=== PATIENT | male | born 1965 | race Caucasian/White ===

== ENCOUNTER → 2021-12-16 | Outpatient (CLI) | payer MEDICAID, SELFPAY ==
[2021-12-16 12:03] LABS: Absolute Lymphocyte Count 2.03 X10^3/uL (0.83-4.51); Basophil# 0.03 X10^3/uL; Basophil% 0.4 % (0-1); Eosinophil# 0.17 X10^3/uL; Eosinophils% 2.5 % (0-5); Hemoglobin 17.4 g/dL (13.0-16.5); Lymphocyte # 2.03 X10^3/ul (0.83-4.51); Lymphocyte % 30.4 % (19-41); Mean Corp Hgb Conc 35.5 g/dL (32-36); Mean Corpuscular Hgb 30.7 pg (27.0-32.0); Mean Corpuscular Volume 86.6 fL (80-94); Mean Platelet Vol. 10.7 fl (6.2-12.0); Monocyte# 0.46 X10^3/uL; Monocyte% 6.9 % (0-10); NRBC Flagged by Analyzer 0 % (0-5); Neutrophil # 3.95 X10^3/uL (2.7-7.7); Neutrophil % 59.4 % (47-70); Platelet Count 155 K/mm3 (150-450); RBC Distribution Width CV 12.5 % (11.6-14.6); RBC Distribution Width SD 39.1 fl (35.1-43.9); Red Blood Count 5.66 M/mm3 (4.6-6.2); White Blood Count 6.7 K/mm3 (4.4-11.0)
[2021-12-16 12:58] LABS: Hemoglobin A1c 9.6 % (3.8-5.6)
[2021-12-16 13:40] LABS: AST(SGOT) 20 U/L (15-37); Alanine Aminotransfer ALT/SGPT 36 U/L (16-61); Albumin, Serum 3.9 g/dL (3.2-5.0); Alkaline Phosphatase 57 U/L (45-117); Anion Gap 9 (5-15); BUN 20 mg/dL (7-18); BUN/Creat Ratio 20.2 RATIO (10-20); Calcium,Total 8.5 mg/dL (8.5-10.1); Chloride 102 mmol/L (98-107); Cholesterol 245 mg/dL (200); Creatinine, Serum 0.99 mg/dL (0.70-1.30); EST Glomerular Filtration Rate 83 mL/min (>60); Est Glom Filt Rate - Afr Amer 101 mL/min (>60); Globulin 3.9 g/dL (2.2-4.2); Glucose 219 mg/dL (74-106); High Density Lipoprotein 18 mg/dL; Potassium 4.5 mmol/L (3.5-5.1); Protein, Total 7.8 g/dL (6.4-8.2); Sodium Level 133 mmol/L (136-145); Triglycerides 1661 mg/dL
[2021-12-17 16:25] LABS: PSA, Total 0.6 ng/mL (0.0-4.0)
== END | disposition home or self-care (01) ==
LOC: MFPLAB 11:17
PROVIDERS: PCP Family Medicine; Referring Provider Family Medicine; Visit Provider Family Medicine
DX: I10 Essential (primary) hypertension (principal); E11.9 Type 2 diabetes mellitus without complications; Z12.5 Encounter for screening for malignant neoplasm of prostate
CPT/HCPCS: 36415; 80053; 80061; 83036; 84153; 85025

== ENCOUNTER → 2022-03-22 | Outpatient (CLI) | payer MEDICAID, SELFPAY ==
[2022-03-22 12:53] LABS: ALB/GLOB Ratio 1.1 RATIO (0.9-2.4); AST(SGOT) 11 U/L (15-37); Alanine Aminotransfer ALT/SGPT 33 U/L (16-61); Albumin, Serum 3.9 g/dL (3.2-5.0); Alkaline Phosphatase 64 U/L (45-117); Anion Gap 10 (5-15); BUN 20 mg/dL (7-18); BUN/Creat Ratio 18.5 RATIO (10-20); Calcium,Total 9.1 mg/dL (8.5-10.1); Chloride 104 mmol/L (98-107); Creatinine, Serum 1.08 mg/dL (0.70-1.30); EST Glomerular Filtration Rate 75 mL/min (>60); Est Glom Filt Rate - Afr Amer 91 mL/min (>60); Globulin 3.5 g/dL (2.2-4.2); Glucose 307 mg/dL (74-106); Potassium 4.2 mmol/L (3.5-5.1); Protein, Total 7.4 g/dL (6.4-8.2); Sodium Level 136 mmol/L (136-145)
== END | disposition home or self-care (01) ==
LOC: MFPLAB 10:03
PROVIDERS: PCP Family Medicine; Visit Provider Nurse Practitioner Family
DX: E11.9 Type 2 diabetes mellitus without complications (principal)
CPT/HCPCS: 36415; 80053

== ENCOUNTER → 2022-12-01 | Outpatient (CLI) | payer MEDICAID, SELFPAY ==
[2022-12-01 07:03] LABS: Absolute Lymphocyte Count 1.91 X10^3/uL (0.83-4.51); Absolute Neutrophil Count 2.4 X10^3/uL (2.0-7.7); Basophil# 0.02 X10^3/uL; Basophil% 0.4 % (0-1); Eosinophil# 0.13 X10^3/uL; Eosinophils% 2.7 % (0-5); Hematocrit 45.1 % (40-54); Hemoglobin 15.1 g/dL (13.0-16.5); Lymphocyte # 1.91 X10^3/ul (0.83-4.51); Lymphocyte % 39.5 % (19-41); Mean Corp Hgb Conc 33.5 g/dL (32-36); Mean Corpuscular Hgb 30.4 pg (27.0-32.0); Mean Corpuscular Volume 90.7 fL (80-94); Mean Platelet Vol. 9.1 fl (6.2-12.0); Monocyte# 0.33 X10^3/uL; Monocyte% 6.8 % (0-10); NRBC Flagged by Analyzer 0 % (0-5); Neutrophil # 2.43 X10^3/uL (2.7-7.7); Neutrophil % 50.2 % (47-70); Platelet Count 233 K/mm3 (150-450); RBC Distribution Width CV 12.2 % (11.6-14.6); RBC Distribution Width SD 40.3 fl (35.1-43.9); Red Blood Count 4.97 M/mm3 (4.6-6.2); White Blood Count 4.8 K/mm3 (4.4-11.0)
[2022-12-01 07:21] LABS: AST(SGOT) 9 U/L (15-37); Alanine Aminotransfer ALT/SGPT 19 U/L (16-61); Albumin, Serum 3.7 g/dL (3.2-5.0); Alkaline Phosphatase 63 U/L (45-117); Anion Gap 7 (5-15); BUN 18 mg/dL (7-18); BUN/Creat Ratio 19.8 RATIO (10-20); Calcium,Total 8.8 mg/dL (8.5-10.1); Chloride 108 mmol/L (98-107); Cholesterol 116 mg/dL (200); Creatinine, Serum 0.91 mg/dL (0.70-1.30); EST Glomerular Filtration Rate 91 mL/min (>60); Est Glom Filt Rate - Afr Amer 110 mL/min (>60); Globulin 3.7 g/dL (2.2-4.2); Glucose 158 mg/dL (74-106); High Density Lipoprotein 29 mg/dL; Potassium 4.5 mmol/L (3.5-5.1); Protein, Total 7.4 g/dL (6.4-8.2); Sodium Level 138 mmol/L (136-145); Triglycerides 209 mg/dL; Very Low Density Lipoprotein 42 mg/dL (5-40)
== END | disposition home or self-care (01) ==
PROVIDERS: PCP Family Medicine
DX: I10 Essential (primary) hypertension (principal); E11.9 Type 2 diabetes mellitus without complications; E66.9 Obesity, unspecified; Z14.8 Genetic carrier of other disease; Z83.49 Family history of other endocrine, nutritional and metabolic diseases; E78.2 Mixed hyperlipidemia
CPT/HCPCS: 36415; 80053; 80061; 85025

== ENCOUNTER → 2022-12-22 | Outpatient (CLI) | payer OTHER, SELFPAY ==
[2022-12-22 08:06] LABS: Absolute Lymphocyte Count 2.07 X10^3/uL (0.83-4.51); Absolute Neutrophil Count 3.5 X10^3/uL (2.0-7.7); Basophil# 0.03 X10^3/uL; Basophil% 0.5 % (0-1); Eosinophil# 0.24 X10^3/uL; Eosinophils% 3.8 % (0-5); Hematocrit 42.6 % (40-54); Hemoglobin 14.1 g/dL (13.0-16.5); Lymphocyte # 2.07 X10^3/ul (0.83-4.51); Lymphocyte % 33.1 % (19-41); Mean Corp Hgb Conc 33.1 g/dL (32-36); Mean Corpuscular Hgb 30.1 pg (27.0-32.0); Monocyte# 0.45 X10^3/uL; Monocyte% 7.2 % (0-10); NRBC Flagged by Analyzer 0 % (0-5); Neutrophil # 3.45 X10^3/uL (2.7-7.7); Neutrophil % 55.2 % (47-70); Platelet Count 157 K/mm3 (150-450); RBC Distribution Width CV 12.6 % (11.6-14.6); RBC Distribution Width SD 41.7 fl (35.1-43.9); Red Blood Count 4.68 M/mm3 (4.6-6.2); White Blood Count 6.3 K/mm3 (4.4-11.0)
[2022-12-22 08:50] LABS: ALB/GLOB Ratio 1.1 RATIO (0.9-2.4); AST(SGOT) 13 U/L (15-37); Alanine Aminotransfer ALT/SGPT 21 U/L (16-61); Albumin, Serum 3.9 g/dL (3.2-5.0); Alkaline Phosphatase 59 U/L (45-117); Anion Gap 6 (5-15); BUN 21 mg/dL (7-18); BUN/Creat Ratio 23.4 RATIO (10-20); Calcium,Total 8.6 mg/dL (8.5-10.1); Chloride 109 mmol/L (98-107); EST Glomerular Filtration Rate 93 mL/min (>60); Est Glom Filt Rate - Afr Amer 112 mL/min (>60); Ferritin 548 ng/mL (26-388); Globulin 3.4 g/dL (2.2-4.2); Glucose 145 mg/dL (74-106); Protein, Total 7.3 g/dL (6.4-8.2); Sodium Level 139 mmol/L (136-145)
== END | disposition home or self-care (01) ==
PROVIDERS: PCP Family Medicine
DX: E11.9 Type 2 diabetes mellitus without complications (principal); E61.1 Iron deficiency; R79.89 Other specified abnormal findings of blood chemistry; E87.1 Hypo-osmolality and hyponatremia; E78.1 Pure hyperglyceridemia; I10 Essential (primary) hypertension
CPT/HCPCS: 36415; 80053; 82728; 85025

== ENCOUNTER 2023-01-25 10:00 | Outpatient (RCR) | payer OTHER, SELFPAY ==
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
--- NOTE | 2023-01-25 10:22 | HP.OTDCSUM ---
Discharge Summary D/C Summary: It has been my pleasure to treat KATELYN MCGILL under orders from RONY ARRIOLA, for the diagnosis of fracture of proximal radius and ulna, left, closed, sequela for a total of 7 visit(s). Please see the following information for a summary of their discharge status. Overall Improvement % Improvement: 95 Objective Objective/Function: left elbow -20/135 triceps right 36 #left 22# peak force pt is performing a HEP of t-band and biking when he has time. pt has returned to his IND with ADls and IADLS without difficulty. Pt agrees to D/C and states he will continue with his strengthening. Goals Patient Goals: Regain Strength, Return to Work, Decrease Swelling/Stiffness, Sleep Better, Decrease Tingling/Numbness, Increase ROM, Be More Independent in ADLS, Resume Former Household Responsibilities (Cooking,Cleaning,Yard, etc.) and Resume Hobbies Goal:: will not initiate PRE until week 6 or surgeon clears. Pt will gain multimedia designer strength by 40# for increased ability to perform ADL/IADLs by discharge. Pt will gain tripod multimedia designer strength by 10# for increased ability to perform ADL/IADLs by discharge. Goal:: Pt will gain 20* of Left elbow flexion to perform daily tasks by discharge. pt will demo increase in left elbow ext. to -10 or less to increase pts IND with ADLs and IADLs by d.c Goal:: pt will demo understanding of scar mtg. by end of 3rd session to decrease risk of scar adhesions. Goal:: Pt to demo overall increased indep in ADL/IADL tasks by decreased total DASH score by 10 points by discharge. Plan Plan: D/C D/C Information Discharge Comments: pt was seen 7 OT sessions following left elbow ORIF. pt has met goals with OT and agrees to D/C with HEP. d/c sentence: If there are questions or concerns regarding this patient's occupational therapy, please fell free to call me at [phone]. Thank you for the referral of this patient. Sincerely, Syl Betancourt, OTR/L, CHT
== END 2023-01-25 13:52 | disposition home or self-care (01) ==
LOC: OT 10:00
PROVIDERS: PCP Family Medicine
DX: S52.002 Unspecified fracture of upper end of left ulna (principal); S52.1 Fracture of upper end of radius
CPT/HCPCS: 97110; 97140; 97166; 97530

== ENCOUNTER 2024-11-02 20:21 | Emergency (ER) | payer OTHER, SELFPAY ==
[2024-11-02 20:22] VITALS: BP 196/71; PULSE 55; RESP 18; TEMP 36.7; O2SAT 99; BMI 34.5
--- NOTE | 2024-11-02 20:54 | EDS_ITS ---
HPI History of Present Illness Chief Complaint: Eye Problem Informant: patient Narrative Narrative: 59-year-old male presenting to the emergency room with bilateral eye irritation and blurry vision. Patient states that he has not worn his contacts for about a week. He but the man drove to [place] to visit his mom in the hospital. By time he was driving home he had to take his contacts out noting that they were rather uncomfortable. He states he did not have any problem taking them out. He does not have a foreign body sensation. He notes blurry vision worse on the right. He is a diabetic. [facility] Medical History Type 2 diabetes mellitus Home Medications ?Medication ?Instructions ?Recorded ?Last Taken ?Type cephalexin 250 mg capsule 250 mg PO DAILY 11/15/22 Unk nown History hydrocodone-acetaminophen 5-325mg 1 tab PO DAILY 11/15 Unknown History 5mg-325mg lisinopril 10 mg tablet 10 mg PO DAILY 11/15/22 Unkn own History metformin 500 mg tablet 500 mg PO DAILY 11/15/22 Unk nown History Allergy/AdvReac Type Severity Reaction Status Date / Time No Known Allergies Allergy Verified 11/02/24 20:23 Family History Other Hypertension Social History Smoking Status: Never smoker alcohol intake: never what type of physical activity do you participate in: bicycling frequency: 1-2 times per week ROS ROS ED Constitutional Constitutional ED: Denies chills or weight loss Eyes Eyes: Reports blurry vision and other Details: See history of present illness ; Denies change in vision or diplopia ENT ENT ED: Denies ear pain, rhinorrhea or sore throat Cardiovascular Cardiovascular: Denies chest pain, orthopnea, palpitations or racing heartbeat Respiratory/Chest Respiratory/Chest: Denies cough, dyspnea or orthopnea Gastrointestinal Gastrointestinal: Denies abdominal pain, diarrhea, nausea or vomiting Genitourinary Genitourinary ED: Denies dysuria, hematuria or urinary frequency Musculoskeletal Musculoskeletal: Denies arthralgias or myalgias Integumentary Denies abscess or rash Neurologic Neurologic: Denies headache(s) or weakness Psychiatric Psychiatric: Denies anxiety, depression, suicidal ideation or suicidal thoughts Endocrine Endocrinology: Denies polydipsia, polyphagia or polyuria Allergic/Immunologic Allergic/Immunologic ED: Denies mouth swelling, tongue swelling or urticaria EXAM Physical Exam Const Vital Signs: 11/02/24 20:22 Temperature 98.1 F Temperature Source Temporal Pulse Rate 55 L Respiratory Rate 18 Blood Pressure 196/71 H Blood Pressure Mean 112 Pulse Ox 99 Oxygen Delivery Method Room Air Positive well nourished and well developed General Appearance ED: well developed and NAD HEENT Reports normocephalic, head/scalp atraumatic and moist mucous membranes Eyes PERRL and EOMs intact bilaterally Eyes Narrative: There is bilateral conjunctival injection and tearing. On fluorescein staining there is circular dye uptake in the center of the eye. I do not appreciate corneal ulcer. Anterior chambers are deep and quiet. Eyes are reactive bilaterally with consensual reflexes. Eyelids everted no obvious foreign body. No periorbital erythema. Neck no lymphadenopathy, supple and no JVD Resp normal respiratory effort and clear to auscultation bilaterally Cardio regular rate, regular rhythm and no murmurs GI normal to inspection, nondistended, normoactive bowel sounds and non-tender Palpation: soft Back/Spine no CVA tenderness and normal ROM Extremity normal to inspection General Extremety ED: Negative for edema General Extremity: Negative for edema Neuro oriented x3 and CN's II-XII intact bilaterally Sensorium / Orientation: alert Motor Exam: strength 5/5 throughout Psych mental status grossly normal Mood & Affect: Negative for depressed or tearful Skin no rashes or lesions noted and no wounds MDM MDM MDM Narrative Medical decision making narrative: Differential diagnosis includes but not limited to contact keratitis, corneal ulcer or corneal abrasion conjunctivitis acute glaucoma globe rupture Based on the physical exam I think that the contacts cause corneal abrasion. Un guinal place him on ciprofloxacin eyedrops. I am recommending no further contact lenses until he is cleared by ophthalmology. 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 History & Record Review Discussion w/independent historian: Patient Discharge Plan Triage Chief Complaint: Eye Problem ED Provider: Eliud Arita Dx/Rx/DC Orders Clinical Impression: Abrasion, corneal, Wears contact lenses Instructions: ED Corneal Abrasion Prescriptions: No Action hydrocodone-acetaminophen 5-325 mg tablet 1 tab PO DAILY cephalexin 250 mg capsule 250 mg PO DAILY lisinopril 10 mg tablet 10 mg PO DAILY Patient Comments: Take 1 tablet by mouth daily metformin 500 mg tablet 500 mg PO DAILY Patient Comments: TAKE 1 TABLET BY MOUTH TWICE DAILY Primary Care Provider: Angel Black Referrals: Angel Black MD [Primary Care Provider] - Activity Restrictions/Additional Instructions: Please call your farmworker machine for an appointment to be seen on Tuesday to ensure resolution of the eye injury. The eyedrops are 2 drops 4 times a day for the next 5 days Print Language: Yoruba Disposition Disposition: Home, Self Care Discharge Date/Time: 11/02/24 21:03
[2024-11-02] MEDS: Ciprofloxacin 0.3% 2.5ml Bottle 2 DRP EACH EYE (20:58)
--- OUTSIDE RECORDS SUMMARY | 2024-11-02 20:58 | XMS RPT_ITS | CCD ---
Author Organization [facility] CliniSytn Care Team Providers Care Rod Cup Filler Name Role Phone Potter, Christopher Unavailable Unavailable Potter, Christopher Unavailable Unavailable Potter, Christopher Unavailable Unavailable Potter, Christopher Unavailable Unavailable Potter, Christopher Unavailable Unavailable Potter, Christopher Unavailable Unavailable Potter, Christopher Unavailable Unavailable CAROLYN ROSE LAMINE Primary Care Physician Dr. Moreno Ying Attending Unavailable KALAYHERNAN DO, TRO Attending Unavailable CAROLYN DO, LAMINE Primary Care Unavailable CAROLYN DO, LAMINE Primary Care Unavailable KALAYJIAN DO, TRO Attending Unavailable CAROLYN DO, LAMINE Primary Care Unavailable KALAYJIAN DO, TRO Attending Unavailable CAROLYN DO, LAMINE Primary Care Unavailable KALAYJIAN DO, TRO Attending Unavailable KALAYJIAN DO, TRO Attending Unavailable CAROLYN DO, LAMINE Primary Care Unavailable Unavailable Primary Care Provider Unavailabl DO Lamine Prasad Primary Care Provider DO Lamine Leon Referring Provider [phone] YESSICA Espinosa Attending Provider JAVIER BEAR Attending Unavailable JAVIER BEAR Referring Unavailable JAVIER BEAR Attending Unavailable JAVIER BEAR Referring Unavailable VETOVITZ, RUPA Referring Unavailable JAVIER BEAR Referring Unavailable VETOVITZ, RUPA Attending Unavailable KANSI, ADARSH Referring Unavailable KANTREVON, AADRSH Attending Unavailable Lamine Leon Primary Care Unavailable KANSI, ADARSH Referring Unavailable KANSI, ADARSH Attending Unavailable Lamine Leon Primary Care Unavailable KANSI, ADARSH Referring Unavailable KANTREVON, ADARSH Attending Unavailable Lamine Leon Primary Care Unavailable Marlene Irving Attending Unavailable Lamine Leon Referring Unavailable Lamine Leon Primary Care Unavailable Allergies Allergy Classification Reported Allergen(s) Allergy Type Date of Onset Reaction(s) Facility (1 source) No Known Allergies; Translations: [No Known Allergies] Propensity to adverse reactions to drug (disorder) [facility] Repository (1 source) No Known Medication Allergies; Translations: [No Known Medication Allergies] Propensity to adverse reactions to drug (disorder) [facility] Repository Medications Current Medications Medication Drug Class(es) Dates Sig (Normalized) Sig (Original) acetaminophen 325 mg / HYDROcodone bitartrate 5 mg oral tablet (2 sources) Opioid Agonist Start: 11-15-2022 take 1 tablet by mouth once daily Hydrocodone-Acet aminophen Active 1 TABLET PO DAILY November 15, 2022 12:00am acetaminophen 325 mg / oxyCODONE hydrochloride 5 mg oral tablet (1 source) Opioid Agonist Start: 11-24-2022 End: 12-01-2022 take 1 tablet by mouth every six hours as needed for pain oxyCODONE-acetam inophen (PERCOCET) 5-325 mg tablet Indications: Closed fracture of olecranon process of left ulna with routine healing, subsequent encounter Take 1 tablet by mouth every 6 hours as needed for pain for up to 7 days. 28 tablet 0 11/24/2022 12/01/2022 Active Comment on above: Take 1 tablet by juan th every 6 hours as needed for pain for up to 7 days. cephalexin 250 mg oral capsule (2 sources) Cephalosporin Antibacterial Start: 11-15-2022 take 250 mg by mouth once daily Cephalexin Active 250 MG PO DAILY November 15, 2022 12:00am metFORMIN hydrochloride 500 mg oral tablet (9 sources) Biguanide Start: 11-15-2022 take 500 mg by mouth once daily Metformin Active 500 MG PO DAILY November 15, 2022 12:00am Start: 10-26-2022 take 1 tablet by juan th twice daily metFORMIN (GLUCOPHAGE) 500 mg tablet Take 500 mg by mouth twice daily. 0 10/26/2022 Active Comment on above: Take 500 mg by mouth twice daily. Completed/Discontinued Medications Medication Drug Class(es) Dates Sig (Normalized) Sig (Original) aspirin 81 mg delayed release oral tablet (4 sources) Platelet Aggregation Inhibitor, Nonsteroidal Anti-inflammatory Drug Start: 3 take 1 tablet by mouth once aspirin, enteric coated (ASPIRIN, ENTERIC COATED) 81 mg EC tablet Take 1 tablet by mouth every afternoon. 0 11/25/2022 Active Comment on above: Take 1 tablet by juan th every afternoon. cyclobenzaprine hydrochloride 10 mg oral tablet (3 sources) Muscle Relaxant Start: 7 End: 3 take 1 tablet by mouth every eight hours as needed cyclobenzaprine (FLEXERIL) 10 mg tablet Take 1 tablet by mouth every 8 hours as needed for Muscle Spasm. 14 tablet 0 10/11/2016 11/24/2022 Discontinued Comment on above: Take 1 tablet by juan th every 8 hours as needed for Muscle Spasm. FREESTYLE CAROL 3 SENSOR molina (7 sources) Start: 3 FREESTYLE CAROL 3 SENSOR molina apply sensor every 14 days 0 11/08/2022 Active Comment on above: apply sensor every 1 4 days hydroCHLOROthiazide 12.5 mg / lisinopril 10 mg oral tablet (2 sources) Thiazide Diuretic, Angiotensin Converting Enzyme Inhibitor End: 3 take 10-12.5 mg by mouth once lisinopril-hydrochl orothiazide (PRINZIDE,ZESTORETI C) 10-12.5 mg per tablet Take 1 tablet by mouth once daily. 0 11/22/2022 Discontinued (Dosage adjustment) Comment on above: Take 1 tablet by juan th once daily. lisinopril 10 mg oral tablet (9 sources) Angiotensin Converting Enzyme Inhibitor Start: 3 take 1 tablet by mouth once daily lisinopril (ZESTRIL) 10 mg tablet Take 10 mg by mouth once daily. 0 11/08/2022 Active Comment on above: Take 10 mg by mouth once daily. naproxen 500 mg oral tablet (3 sources) Nonsteroidal Anti-inflammatory Drug Start: 7 End: 3 take 1 tablet by mouth twice daily at mealtime naproxen (NAPROSYN) 500 mg tablet Take 1 tablet by mouth twice daily with meals. 28 tablet 0 10/11/2016 11/24/2022 Discontinued Comment on above: Take 1 tablet by juan th twice daily with meals. rosuvastatin calcium 5 mg oral tablet (4 sources) HMG-CoA Reductase Inhibitor Start: 3 take 1 tablet by mouth once rosuvastatin (CRESTOR) 5 mg tablet Take 1 tablet by mouth every afternoon. 0 11/25/2022 Active Comment on above: Take 1 tablet by juan th every afternoon. SITAGLIPTIN PHOS/METFORMIN HCL (JANUMET ORAL) (2 sources) End: 3 SITAGLIPTIN PHOS/METFORMIN HCL (JANUMET ORAL) Take by mouth. 0 11/22/2022 Discontinued (Dosage adjustment) SITAGLIPTIN PHOS /METFORMIN HCL (JANUMET ORAL) Take by mouth. 0 Active Comment on above: Take by mouth. Problems Problem Classification Problem Date Documented Date Episodic/Chronic Diabetes mellitus without complication (1 source) Type 2 diabetes mellitus without complications; Translations: [Type 2 diabetes mellitus without complications] Onset: 12-28-2022 Chronic Disorders of lipid metabolism (3 sources) Hyperlipidemia, unspecified; Translations: [Hyperlipidemia, unspecified] Onset: 11-02-2022 Chronic Essential hypertension (1 source) Essential (primary) hypertension; Translations: [Essential (primary) hypertension] Onset: 04-25-2023 Chronic Fracture of upper limb (17 sources) Closed fracture of upper end of radius AND ulna; Translations: [Unspecified fracture of upper end of left ulna, sequela] Onset: 11-15-2022 11-22-2022 Episodic Other screening for suspected conditions (not mental disorders or infectious disease) (2 sources) Encounter for screening for cardiovascular disorders; Translations: [Blood chemistry abnormal] Onset: 11-02-2022 Episodic Residual codes; unclassified (1 source) Blood chemistry abnormal; Translations: [Abnormal findings of blood amino-acid level] Episodic Residual codes; unclassified (1 source) Genetic disorder carrier; Translations: [Genetic susceptibility to other disease] Episodic Results Test Name Value Interpretation Reference Range Facility OT D/C Summaryon 01-25-2023 OT D/C Summary [facility] [place] [address] / REHABILITATION SERVICES DISCHARGE SUMMARY MR#: [id number] Acct: [id number] Name: ARTEMWILBERT Rep #: [id number] : 1965 57 From: Syl CAGE/Mani, CHT Referring : Status: REG RCR Eval Date: Discharge Date: Discharge Summary D/C Summary: It has been my pleasure to treat WILBERT MCGILL under orders from RUPA ARRIOLA, for the diagnosis of fracture of proximal radius and ulna, left, closed, sequela for a total of 7 visit(s). Please see the following information for a summary of their discharge status. Overall Improvement % Improvement: 95 Objective Objective/Function: left elbow -20/135 triceps right 36 #left 22# peak force pt is performing a HEP of t-band and biking when he has time. pt has returned to his IND with ADls and IADLS without difficulty. Pt agrees to D/C and states he will continue with his strengthening. Goals Patient Goals: Regain Strength, Return to Work, Decrease Swelling/Stiffness, Sleep Better, Decrease Tingling/Numbness, Increase ROM, Be More Independent in ADLS, Resume Former Household Responsibilities (Cooking,Cleaning,Yard, etc.) and Resume Hobbies Goal:: will not initiate PRE until week 6 or surgeon clears. 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 Pt will gain tripod broodmare foreman strength by 10# for increased ability to perform ADL/IADLs by discharge. Goal:: Pt will gain 20* of Left elbow flexion to perform daily tasks by discharge. pt will demo increase in left elbow ext. to -10 or less to increase pts IND with ADLs and IADLs by d.c Goal:: pt will demo understanding of scar mtg. by end of 3rd session to decrease risk of scar adhesions. Goal:: Pt to demo overall increased indep in ADL/IADL tasks by decreased total DASH score by 10 points by discharge. Plan Plan: D/C D/C Information Discharge Comments: pt was seen 7 OT sessions following left elbow ORIF. pt has met goals with OT and agrees to D/C with HEP. d/c sentence: If there are questions or concerns regarding this patient's occupational therapy, please fell free to call me at [phone]. Thank you for the referral of this patient. Sincerely, Syl Betancourt, BARBARAR/Mani, CHT 01/25/23 1022 CC: Lamine Leon DO; RUPA ARRIOLA MK Signed Normal [facility] CNOVon 01-03-2023 CNOV Office Visit (ORTHWS ) WILBERT MCGILL ([id number]) 1965 M T Date Time Provider Department 01/03/23 12:40 PM JAVIER BEAR During your visit today, we recorded the following information about you: Javier Bear MD 01/03/2023 1:27 PM Signed Javier Bear MD Department of Orthopaedics Orthopaedics [address] [facility] [address] Dept: [phone] Dept January 03, 2023 CHIEF COMPLAINT: Post Op of the Left Elbow. HPI Patient here for 5 weeks 5 days post op Left elbow ORIF proximal ulna. Patient denies any pain today. He has been going to OT and home exercises. X-rays done today at [facility]. ASSESSMENT: S52.002S, S52.102S Fracture of radius, proximal, with ulna, left, closed, sequela (primary encounter diagnosis) SUMMARY/PLAN: Patient is doing quite well. He is gaining a lot more motion. Is been taking it easy but does admit to getting on his bicycle just for a bit yesterday. From a healing standpoint, I think that is fine he certainly needs to be cautious for another number of weeks. Continue motion and starting strengthening is certainly appropriate at this point. Exam: Motion is about 110 degrees to lacking 10 degrees of terminal extension. Imagin views of the elbow show appropriate fracture healing and hardware without concerns. Mr. Wilbert Mcgill was advised as to contrast therapies and/or to take analgesics/anti-inflammator ies as needed and all contraindications were reviewed. Supporting Information Below: Medications: Current Outpatient Medications Medication Sig rosuvastatin (CRESTOR) 5 mg tablet Take 1 tablet by mouth every afternoon. aspirin, enteric coated (ASPIRIN, ENTERIC COATED) 81 mg EC tablet Take 1 tablet by mouth every afternoon. FREESTYLE CAROL 3 SENSOR molina apply sensor every 14 days lisinopril (ZESTRIL) 10 mg tablet Take 10 mg by mouth once daily. metFORMIN (GLUCOPHAGE) 500 mg tablet Take 500 mg by mouth twice daily. No current facility-administered medications for this visit. Allergies: Patient has no known allergies. Javier Bear MD Referring Provider: JAVIER BEAR [[id number]] Allergies As of Date: 01/03/2023 (No Known Allergies) Date Reviewed: 01/03/2023 Reviewed by: Javier Bear MD - Fully Assessed Reason for Visit: Post Op [174] Primary Visit Diagnosis:Fracture of radius, proximal, with ulna, left, closed, sequela [S52.002S, S52.102S] Prescriptions as of 01/03/2023 - rosuvastatin (CRESTOR) 5 mg tablet Take 1 tablet by mouth every afternoon. - aspirin, enteric coated (ASPIRIN, ENTERIC COATED) 81 mg EC tablet Take 1 tablet by mouth every afternoon. - FREESTYLE CAROL 3 SENSOR molina apply sensor every 14 days - lisinopril (ZESTRIL) 10 mg tablet Take 10 mg by mouth once daily. - metFORMIN (GLUCOPHAGE) 500 mg tablet Take 500 mg by mouth twice daily. Problem List As Of Date: 01/03/2023 (None) Encounter Status:Closed by JAVIER BEAR on 01/03/23 [facility] XR ELBOW 2V AP/LAT LTon 12-15 XR ELBOW 2V AP/LAT LT * * *Final Report* * * DATE OF EXAM: Jan 03 2023 12:19PM WRX [id number] - XR ELBOW 2V AP/LAT LT / PROCEDURE REASON: multiple diagnoses * * * * Physician Interpretation * * * * EXAMINATION: XR ELBOW 2V AP/LAT LT HISTORY: Fracture follow up Fracture of radius, proximal, with ulna, left, closed, sequela Fracture of radius, proximal, with ulna, left, closed, sequela . TECHNIQUE: XR ELBOW 2V AP/LAT LT Laterality: LEFT Number of different views (projections): 2 M: XB_1 COMPARISON: 12/06/2022 RESULT: Plate and screw fixation of the proximal ulna across intra-articular fracture with intact appearance and increased healing of the fracture. There are mild to moderate degenerative changes of the left elbow joint. Decreased joint effusion. Posterior elbow soft tissue swelling. No acute fracture or dislocation. There are no bony erosions. IMPRESSION: Healing ulnar fracture fixation. Bottle Washing Machine Operator: JESUS MANUEL Transcribe Date/Time: Jan 06 2023 7:57A Dictated by : PANTERA MUNOZ MD This examination was interpreted and the report reviewed and electronically signed by: PANTERA MUNOZ MD on Jan 06 2023 7:58AM EST [id number] Normal [facility] XR ELBOW GENERAL 2V AP/LAT L EFTon 01-03-2023 [facility] Absolute lymphocyte counton 12-22-2022 Lymphocytes Auto (Unsp spec) [#/Vol] 2.07 10*3/uL 0.83-4.51 [facility] Basophil percentageon 2022 Basophils/100 WBC (Bld) 0.5 % 0-1 [facility] Bilirubin [Mass/Vol] 0.50 mg/dL 0.20-1.00 [facility] Comment on above: For patients on eltr ombopag therapy, use of Dimension [place] TBIL is not recommended. Chloride [Moles/Vol] 109 mmol/L 98-107 [facility] Eosinophils/100 WBC (Bld) 3.8 % 0-5 [facility] Glucose [Mass/Vol] 145 mg/dL 74-106 [facility] Comment on above: Fasting Glucose resu lt greater than or equal to 126 mg/dL suggests DIABETES MELLITUS per A.D.A. criteria. Neutrophils (Bld) [#/Vol] 3.5 10*3/uL 2.0-7.7 [facility] Neutrophils/100 WBC (Bld) 55.2 % 47-70 [facility] Potassium [Moles/Vol] 4.0 mmol/L 3.5-5.1 [facility] Protein [Mass/Vol] 7.3 g/dL 6.4-8.2 [facility] Sodium [Moles/Vol] 139 mmol/L 136-145 [facility] WBC (Bld) [#/Vol] 6.3 10*3/uL 4.4-11.0 [facility] Blood erythrocytes count (nu mber/volume)on 12-22-2022 RBC (Bld) [#/Vol] 4.68 10*6/uL 4.6-6.2 [facility] Blood hemoglobin measurement (mass/volume)on 12-22-2022 Hemoglobin (Bld) [Mass/Vol] 14.1 g/dL 13.0-16.5 [facility] Blood lymphocytes/100 leukoc yteson 12-22-2022 Lymphocytes/100 WBC (Bld) 33.1 % 19-41 [facility] Blood monocytes/100 leukocyt eson 12-22-2022 Monocytes/100 WBC (Bld) 7.2 % 0-10 [facility] Blood platelet mean volumeon 12-22-2022 Platelet mean volume (Bld) [Entitic vol] 10.0 fL 6.2-12.0 [facility] CBC W/Diff, Automatedon 08- Absolute Lymph 2.07 X10 3/uL Normal 0.83-4.51 [facility] Comment on above: Performed By: #### L 100.0100, L500.4050, L503.6550 #### [facility] [address] [place], [address] Absolute Neut 3.5 X10 3/uL Normal 2.0-7.7 [facility] Comment on above: Performed By: #### L 100.0100, L500.4050, L503.6550 #### [facility] [address] [place], [address] Basophils/100 WBC (Bld) 0.5 % Normal 0-1 [facility] Comment on above: Performed By: #### L 100.0100, L500.4050, L503.6550 #### [facility] [address] [place], [address] Eosinophils/100 WBC (Bld) 3.8 % Normal 0-5 [facility] Comment on above: Performed By: #### L 100.0100, L500.4050, L503.6550 #### [facility] [address] [place], [address] Erythrocyte distribution width (RBC) [Ratio] 12.6 % Normal 11.6-14.6 [facility] Comment on above: Performed By: #### L 100.0100, L500.4050, L503.6550 #### [facility] [address] [place], [address] Hematocrit (Bld) [Volume fraction] 42.6 % Normal 40-54 [facility] Comment on above: Performed By: #### L 100.0100, L500.4050, L503.6550 #### [facility] [address] [place], [address] Hemoglobin (Bld) [Mass/Vol] 14.1 g/dL Normal 13.0-16.5 [facility] Comment on above: Performed By: #### L 100.0100, L500.4050, L503.6550 #### [facility] [address] [place], [address] IG% 0.200 Normal 0.0-0.9 [facility] Comment on above: Result Comment: IG% - Immature Granulocytes (promyelocytes, myelocytes and metamyelocytes) > 1% indicates that a LEFT SHIFT is Present. Performed By: #### L 100.0100, L500.4050, L503.6550 #### [facility] [address] [place], [address] Lymphocytes/100 WBC (Bld) 33.1 % Normal 19-41 [facility] Comment on above: Performed By: #### L 100.0100, L500.4050, L503.6550 #### [facility] [address] [place], [address] MCH (RBC) [Entitic mass] 30.1 pg Normal 27.0-32.0 [facility] Comment on above: Performed By: #### L 100.0100, L500.4050, L503.6550 #### [facility] [address] [place], [address] MCHC (RBC) [Mass/Vol] 33.1 g/dL Normal 32-36 [facility] Comment on above: Performed By: #### L 100.0100, L500.4050, L503.6550 #### [facility] [address] [place], [address] MCV (RBC) [Entitic vol] 91.0 fL Normal 80-94 [facility] Comment on above: Performed By: #### L 100.0100, L500.4050, L503.6550 #### [facility] [address] [place], [address] Monocytes/100 WBC (Bld) 7.2 % Normal 0-10 [facility] Comment on above: Performed By: #### L 100.0100, L500.4050, L503.6550 #### [facility] [address] [place], [address] Neutrophils/100 WBC (Bld) 55.2 % Normal 47-70 [facility] Comment on above: Performed By: #### L 100.0100, L500.4050, L503.6550 #### [facility] [address] [place], [address] Nucleated RBC (Bld) [#/Vol] 0 10*3/uL Normal 0-5 [facility] Comment on above: Performed By: #### L 100.0100, L500.4050, L503.6550 #### [facility] [address] [place], [address] Platelet mean volume (Bld) [Entitic vol] 10.0 fL Normal 6.2-12.0 [facility] Comment on above: Performed By: #### L 100.0100, L500.4050, L503.6550 #### [facility] [address] [place], [address] Platelets (Bld) [#/Vol] 157 10*3/uL Normal 150-450 [facility] Comment on above: Performed By: #### L 100.0100, L500.4050, L503.6550 #### [facility] [address] [place], [address] RBC (Bld) [#/Vol] 4.68 10*6/uL Normal 4.6-6.2 [facility] Comment on above: Performed By: #### L 100.0100, L500.4050, L503.6550 #### [facility] [address] [place], [address] RDW SD 41.7 fl Normal 35.1-43.9 [facility] Comment on above: Performed By: #### L 100.0100, L500.4050, L503.6550 #### [facility] [address] [place], [address] WBC (Bld) [#/Vol] 6.3 10*3/uL Normal 4.4-11.0 [facility] Comment on above: Performed By: #### L 100.0100, L500.4050, L503.6550 #### [facility] [address] [place], [address] Comprehensive Metabolic Prof vton 12-22-2022 Albumin [Mass/Vol] 3.9 g/dL Normal 3.2-5.0 [facility] Comment on above: Performed By: #### L 100.0100, L500.4050, L503.6550 #### [facility] [address] [place], [address] Albumin/Globulin [Mass ratio] 1.1 {ratio} Normal 0.9-2.4 [facility] Comment on above: Performed By: #### L 100.0100, L500.4050, L503.6550 #### [facility] [address] [place], [address] ALK P 59 U/L Normal 45-117 [facility] Comment on above: Performed By: #### L 100.0100, L500.4050, L503.6550 #### [facility] [address] [place], [address] ALT [Catalytic activity/Vol] 21 U/L Normal 16-61 [facility] Comment on above: Performed By: #### L 100.0100, L500.4050, L503.6550 #### [facility] [address] [place], [address] AST [Catalytic activity/Vol] 13 U/L Low 15-37 [facility] Comment on above: Performed By: #### L 100.0100, L500.4050, L503.6550 #### [facility] [address] [place], [address] Bilirubin [Mass/Vol] 0.50 mg/dL Normal 0.20-1.00 [facility] Comment on above: Result Comment: For patients on eltrombopag therapy, use of Dimension [place] TBIL is not recommended. Performed By: #### L 100.0100, L500.4050, L503.6550 #### [facility] [address] [place], [address] BUN/CRE 23.4 RATIO High 10-20 [facility] Comment on above: Performed By: #### L 100.0100, L500.4050, L503.6550 #### [facility] [address] [place], [address] CA,Total 8.6 mg/dL Normal 8.5-10.1 [facility] Comment on above: Performed By: #### L 100.0100, L500.4050, L503.6550 #### [facility] [address] [place], [address] Chloride [Moles/Vol] 109 mmol/L High 98-107 [facility] Comment on above: Performed By: #### L 100.0100, L500.4050, L503.6550 #### [facility] [address] [place], [address] CO2 [Moles/Vol] 24.0 mmol/L Normal 21.0-32.0 [facility] Comment on above: Performed By: #### L 100.0100, L500.4050, L503.6550 #### [facility] [address] [place], [address] Creatinine [Mass/Vol] 0.90 mg/dL Normal 0.70-1.30 [facility] Comment on above: Result Comment: The validity of the calculated GFR GFRAA in patients over 70 years has not been determined. Clinical correlation is essential. Performed By: #### L 100.0100, L500.4050, L503.6550 #### [facility] [address] [place], [address] EST GFR - AA 112 mL/min Normal >60 [facility] Comment on above: Result Comment: Afri can Montserratian GFR Calc Performed By: #### L 100.0100, L500.4050, L503.6550 #### [facility] [address] [place], [address] GAP 6 Normal 5-15 [facility] Comment on above: Performed By: #### L 100.0100, L500.4050, L503.6550 #### [facility] [address] [place], [address] GFR/1.73 sq M.predicted among non-blacks MDRD (S/P/Bld) [Vol rate/Area] 93 mL/min/{1.73_m2} Normal >60 [facility] Comment on above: Result Comment: Non- GFR Calc Performed By: #### L 100.0100, L500.4050, L503.6550 #### [facility] [address] [place], [address] Globulin (S) [Mass/Vol] 3.4 g/dL Normal 2.2-4.2 [facility] Comment on above: Performed By: #### L 100.0100, L500.4050, L503.6550 #### [facility] [address] [place], [address] Glucose [Mass/Vol] 145 mg/dL High 74-106 [facility] Comment on above: Result Comment: Fast ing Glucose result greater than or equal to 126 mg/dL suggests DIABETES MELLITUS per A.D.A. criteria. Performed By: #### L 100.0100, L500.4050, L503.6550 #### [facility] [address] [place], [address] Potassium [Moles/Vol] 4.0 mmol/L Normal 3.5-5.1 [facility] Comment on above: Performed By: #### L 100.0100, L500.4050, L503.6550 #### [facility] [address] [place], [address] Sodium [Moles/Vol] 139 mmol/L Normal 136-145 [facility] Comment on above: Performed By: #### L 100.0100, L500.4050, L503.6550 #### [facility] [address] [place], [address] T PROT 7.3 g/dL Normal 6.4-8.2 [facility] Comment on above: Performed By: #### L 100.0100, L500.4050, L503.6550 #### [facility] [address] [place], [address] Urea nitrogen [Mass/Vol] 21 mg/dL High 7-18 [facility] Comment on above: Performed By: #### L 100.0100, L500.4050, L503.6550 #### [facility] [address] [place], [address] Determination of erythrocyte mean corpuscular volume (MCV)on 12-22-2022 MCV (RBC) [Entitic vol] 91.0 fL 80-94 [facility] Ferritinon 12-22-2022 Ferritin [Mass/Vol] 548 ng/mL High 26-388 [facility] Comment on above: Performed By: #### L 100.0100, L500.4050, L503.6550 #### [facility] [address] [place], [place], [address] Hematocrit Auto (Bld) [Volum e fraction]on 12-22-2022 Hematocrit (Bld) [Volume fraction] 42.6 % 40-54 [facility] - Chemistry and C hemistry - challengeon 12-22-2022 ALP [Catalytic activity/Vol] 59 U/L 45-117 [facility] ALT [Catalytic activity/Vol] 21 U/L 16-61 [facility] CO2 [Moles/Vol] 24.0 mmol/L 21.0-32.0 [facility] Globulin (S) [Mass/Vol] 3.4 g/dL 2.2-4.2 [facility] Urea nitrogen/Creatinine [Mass ratio] 23.4 mg/mg 10-20 [facility] - Hematology and Cell countson 12-22-2022 Erythrocyte distribution width (RBC) [Entitic vol] 41.7 fL 35.1-43.9 [facility] Erythrocyte distribution width (RBC) [Ratio] 12.6 % 11.6-14.6 [facility] Immature granulocytes/100 WBC (Bld) 0.200 % 0.0-0.9 [facility] Comment on above: IG% - Immature Granu locytes (promyelocytes, myelocytes and metamyelocytes) > 1% indicates that a LEFT SHIFT is Present. MCH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 6.1 10 3/mcL Normal 4.6-10.8 [facility] ([place]) Comment on above: Performed By: #### V IDH, VITC, CBC, CMP, FRUCTO, GFR, MAGRBC, ANEU, A1C, ADIFF #### [place] [address] #### HOMO, INSLN #### [place] [address] CMPon 10-15-2022 Albumin Level 4.4 G/dL Normal 3.5-5.0 [facility] ([place]) Comment on above: Performed By: #### V IDH, VITC, CBC, CMP, FRUCTO, GFR, MAGRBC, ANEU, A1C, ADIFF #### [place] [address] #### HOMO, INSLN #### [place] [address] Albumin/Globulin [Mass ratio] 1.8 {ratio} Normal 1.1-2.5 [facility] ([place]) Comment on above: Performed By: #### V IDH, VITC, CBC, CMP, FRUCTO, GFR, MAGRBC, ANEU, A1C, ADIFF #### [address] [address] #### HOMO, INSLN #### [address] [address] ALP [Catalytic activity/Vol] 53 U/L Normal 40-135 [facility] ([place]) Comment on above: Performed By: #### V IDH, VITC, CBC, CMP, FRUCTO, GFR, MAGRBC, ANEU, A1C, ADIFF #### [place] [address] #### HOMO, INSLN #### [place] [address] ALT [Catalytic activity/Vol] 26 U/L Normal 16-63 [facility] ([place]) Comment on above: Performed By: #### V IDH, VITC, CBC, CMP, FRUCTO, GFR, MAGRBC, ANEU, A1C, ADIFF #### [place] [address] #### HOMO, INSLN #### [place] [address] AST [Catalytic activity/Vol] 18 U/L Normal 10-40 [facility] ([place]) Comment on above: Performed By: #### V IDH, VITC, CBC, CMP, FRUCTO, GFR, MAGRBC, ANEU, A1C, ADIFF #### [place] [address] #### HOMO, INSLN #### [place] [address] Bili Total 0.9 mg/dL Normal 0.2-1.0 [facility] ([place]) Comment on above: Result Comment: Use of this assay is not recommended for patients undergoing treatment with eltrombopag due to the potential for falsely elevated results. Performed By: #### V IDH, VITC, CBC, CMP, FRUCTO, GFR, MAGRBC, ANEU, A1C, ADIFF #### [address] [address] #### HOMO, INSLN #### [address] [address] BUN/Creatinine Ratio 15 ratio Normal 7-27 [facility] ([place]) Comment on above: Performed By: #### V IDH, VITC, CBC, CMP, FRUCTO, GFR, MAGRBC, ANEU, A1C, ADIFF #### [place] [address] #### HOMO, INSLN #### [address] [address] Calcium [Mass/Vol] 9.1 mg/dL Normal 8.4-10.2 [facility] ([place]) Comment on above: Performed By: #### V IDH, VITC, CBC, CMP, FRUCTO, GFR, MAGRBC, ANEU, A1C, ADIFF #### [place] [address] #### HOMO, INSLN #### [address] [address] Chloride [Moles/Vol] 102 mmol/L Normal 98-107 [facility] ([place]) Comment on above: Performed By: #### V IDH, VITC, CBC, CMP, FRUCTO, GFR, MAGRBC, ANEU, A1C, ADIFF #### [place] [address] #### HOMO, INSLN #### [address] [address] CO2 [Moles/Vol] 23 mmol/L Normal 22-29 [facility] ([place]) Comment on above: Performed By: #### V IDH, VITC, CBC, CMP, FRUCTO, GFR, MAGRBC, ANEU, A1C, ADIFF #### [place] [address] #### HOMO, INSLN #### [address] [address] Creatinine [Mass/Vol] 1.10 mg/dL Normal 0.70-1.30 [facility] ([place]) Comment on above: Performed By: #### V IDH, VITC, CBC, CMP, FRUCTO, GFR, MAGRBC, ANEU, A1C, ADIFF #### [address] [address] #### HOMO, INSLN #### [address] [address] Electrolyte Balance 11.0 mEq/L Normal 4.0-15.0 [facility] ([place]) Comment on above: Performed By: #### V IDH, VITC, CBC, CMP, FRUCTO, GFR, MAGRBC, ANEU, A1C, ADIFF #### [address] [address] #### HOMO, INSLN #### [place] [address] Globulin 2.4 G/dL Normal [facility] ([place]) Comment on above: Performed By: #### V IDH, VITC, CBC, CMP, FRUCTO, GFR, MAGRBC, ANEU, A1C, ADIFF #### [address] [address] #### HOMO, INSLN #### [address] [address] Glucose [Mass/Vol] 109 mg/dL High 70-105 [facility] ([place]) Comment on above: Performed By: #### V IDH, VITC, CBC, CMP, FRUCTO, GFR, MAGRBC, ANEU, A1C, ADIFF #### [address] [address] #### HOMO, INSLN #### [address] [address] Potassium [Moles/Vol] 4.3 mmol/L Normal 3.5-5.1 [facility] ([place]) Comment on above: Performed By: #### V IDH, VITC, CBC, CMP, FRUCTO, GFR, MAGRBC, ANEU, A1C, ADIFF #### [address] [address] #### HOMO, INSLN #### [address] [address] Sodium [Moles/Vol] 136 mmol/L Normal 136-145 [facility] ([place]) Comment on above: Performed By: #### V IDH, VITC, CBC, CMP, FRUCTO, GFR, MAGRBC, ANEU, A1C, ADIFF #### [place] [address] #### HOMO, INSLN #### [place] [address] Total Protein 6.8 G/dL Normal 6.4-8.2 [facility] ([place]) Comment on above: Performed By: #### V IDH, VITC, CBC, CMP, FRUCTO, GFR, MAGRBC, ANEU, A1C, ADIFF #### [place] [address] #### HOMO, INSLN #### [place] [address] Urea nitrogen [Mass/Vol] 17 mg/dL Normal 7-18 [facility] ([place]) Comment on above: Performed By: #### V IDH, VITC, CBC, CMP, FRUCTO, GFR, MAGRBC, ANEU, A1C, ADIFF #### [place] [address] #### HOMO, INSLN #### [place] [address] INSLNon 10-15-2022 Insulin 5.16 munit/L Normal 2.60-37.60 [facility] ([place]) Comment on above: Performed By: #### M ISC #### [place] [address] LABORATORYOrdered By: SYSTEM SYSTEM on 10-15-2022 25-hydroxyvitamin D3 [Mass/Vol] 26.1 ng/mL Invalid Interpretation Code AO ADM SS Albumin BCP dye [Mass/Vol] 4.4 G/dL Invalid Interpretation Code 3.5 - 5.0 G/dL AO ADM SS Albumin/Globulin [Mass ratio] 1.8 {ratio} Invalid Interpretation Code 1.1 - 2.5 ratio AO ADM SS ALP [Catalytic activity/Vol] 53 U/L Invalid Interpretation Code 40 - 135 U/L AO ADM SS ALT With P-5'-P [Catalytic activity/Vol] 26 U/L Invalid Interpretation Code 16 - 63 U/L AO ADM SS AST With P-5'-P [Catalytic activity/Vol] 18 U/L Invalid Interpretation Code 10 - 40 U/L AO ADM SS Bilirubin [Mass/Vol] 0.9 mg/dL Invalid Interpretation Code 0.2 - 1.0 mg/dL AO ADM SS Calcium [Mass/Vol] 9.1 mg/dL Invalid Interpretation Code 8.4 - 10.2 mg/dL AO ADM SS Chloride [Moles/Vol] 102 mmol/L Invalid Interpretation Code 98 - 107 mmol/L AO ADM SS CO2 [Moles/Vol] 23 mmol/L Invalid Interpretation Code 22 - 29 mmol/L AO ADM SS Creatinine [Mass/Vol] 1.10 mg/dL Invalid Interpretation Code 0.70 - 1.30 mg/dL AO ADM SS Electrolyte Balance 11.0 mEq/L Invalid Interpretation Code 4.0 - 15.0 mEq/L AO ADM SS GFR/1.73 sq M.predicted among blacks MDRD (S/P/Bld) [Vol rate/Area] 84 ml/min/1.73sqm Invalid Interpretation Code AO Chemistry S GFR/1.73 sq M.predicted among non-blacks MDRD (S/P/Bld) [Vol rate/Area] 69 ml/min/1.73sqm Invalid Interpretation Code AO Chemistry S Globulin 2.4 G/dL Invalid Interpretation Code AO ADM SS Glucose [Mass/Vol] 109 mg/dL Invalid Interpretation Code 70 - 105 mg/dL AO ADM SS HbA1c (Bld) [Mass fraction] 6.5 % Invalid Interpretation Code 4.3 - 6.4 % AO ADM SS Homocysteine [Moles/Vol] 18.0 umol/L Invalid Interpretation Code 3.7 - 13.9 umol/l AH ADM SS Insulin Qn 5.16 munit/L Invalid Interpretation Code 2.60 - 37.60 mU/L AH ADM SS Potassium [Moles/Vol] 4.3 mmol/L Invalid Interpretation Code 3.5 - 5.1 mmol/L AO ADM SS Protein [Mass/Vol] 6.8 G/dL Invalid Interpretation Code 6.4 - 8.2 G/dL AO ADM SS Sodium [Moles/Vol] 136 mmol/L Invalid Interpretation Code 136 - 145 mmol/L AO ADM SS Urea nitrogen [Mass/Vol] 17 mg/dL Invalid Interpretation Code 7 - 18 mg/dL AO ADM SS Urea nitrogen/Creatinine [Mass ratio] 15 ratio Invalid Interpretation Code 7 - 27 ratio AO ADM SS LABORATORYOrdered By: Polly Mcculloguh on 10-15-2022 Basophil, Absolute 0.0 103/mcL Invalid Interpretation Code 0.0 - 0.2 10^3/mcL AO Workflow SS Basophils/100 WBC (Bld) 0.4 % Invalid Interpretation Code 0.0 - 2.5 % AO Workflow SS Eosinophil, Absolute 0.1 103/mcL Invalid Interpretation Code 0.0 - 0.4 10^3/mcL AO Workflow SS Eosinophils/100 WBC (Bld) 2.0 % Invalid Interpretation Code 0.0 - 7.0 % AO Workflow SS Erythrocyte distribution width (RBC) [Ratio] 13.1 % Invalid Interpretation Code 11.5 - 14.5 % AO Workflow SS Hematocrit (Bld) [Volume fraction] 43.8 % Invalid Interpretation Code 42.0 - 52.0 % AO Workflow SS Hemoglobin (Bld) [Mass/Vol] 15.1 G/dL Invalid Interpretation Code 14.0 - 18.0 G/dL AO Workflow SS Lymphocyte, Absolute 1.9 103/mcL Invalid Interpretation Code 0.8 - 3.9 10^3/mcL AO Workflow SS Lymphocytes/100 WBC (Bld) 31.5 % Invalid Interpretation Code 10.0 - 50.0 % AO Workflow SS MCH (RBC) [Entitic mass] 31.0 pg Invalid Interpretation Code 27.0 - 31.2 pg AO Workflow SS MCHC 34.5 G/dL Invalid Interpretation Code 31.8 - 35.4 G/dL AO Workflow SS MCV (RBC) [Entitic vol] 89.7 fL Invalid Interpretation Code 80.0 - 94.0 fL AO Workflow SS Monocyte, Absolute 0.3 103/mcL Invalid Interpretation Code 0.2 - 1.0 10^3/mcL AO Workflow SS Monocytes/100 WBC (Bld) 5.6 % Invalid Interpretation Code 1.7 - 13.0 % AO Workflow SS Neutrophil, Absolute 3.7 103/mcL Invalid Interpretation Code 2.9 - 6.2 10^3/mcL AO Workflow SS Neutrophils/100 WBC (Bld) 60.5 % Invalid Interpretation Code 37.0 - 80.0 % AO Workflow SS Platelet mean volume (Bld) [Entitic vol] 8.3 fL Invalid Interpretation Code 7.4 - 10.4 fL AO Workflow SS Platelets (Bld) [#/Vol] 165 103/mcL Invalid Interpretation Code 130 - 400 10^3/mcL AO Workflow SS RBC (Bld) [#/Vol] 4.88 106/mcL Invalid Interpretation Code 4.04 - 6.13 10^6/mcL AO Workflow SS WBC (Bld) [#/Vol] 6.1 103/mcL Invalid Interpretation Code 4.6 - 10.8 10^3/mcL AO Workflow SS VIDHon 10-15-2022 Vit. D 25-Hydroxy 26.1 ng/mL Normal [facility] ([place]) Comment on above: Result Comment: Inte rpretive Values Based on Total 25(OH) Vitamin D: Deficient <20 ng/mL Insufficient 20 - <30 ng/mL Sufficient 30-100 ng/mL Performed By: #### V IDH, VITC, CBC, CMP, FRUCTO, GFR, MAGRBC, ANEU, A1C, ADIFF #### [address] [address] #### HOMO, INSLN #### [place] [address] MISCon 10-01-2022 [facility]. Send Out See Comments Normal [facility] ([place]) Comment on above: Result Comment: Comp lete reference lab report scanned to EMR. Performed By: #### M ISC #### [address] [address] NMRLPDon 09-17-2022 Chol/HDL-C 8.6 calc High <3.6 [facility] ([place]) Comment on above: Result Comment: Perf ormed By: [facility] [address] [place] [address] Laboratory Tester: MD ARNOLDO Peña#: [id number] Performed By: #### V IDH, VITC, CBC, CMP, FRUCTO, GFR, MAGRBC, ANEU, A1C, ADIFF #### [place] [address] #### HOMO, INSLN #### [address] [address] Cholesterol [Mass/Vol] 207 mg/dL High <200 [facility] ([place]) Comment on above: Result Comment: Perf ormed By: [employer] [address] [place] [address] Laboratory Tester: Enio Aranda MD CLIA#: [id number] Performed By: #### V IDH, VITC, CBC, CMP, FRUCTO, GFR, MAGRBC, ANEU, A1C, ADIFF #### [place] [address] #### HOMO, INSLN #### [place] [address] HDL Cholesterol NMR 24 mg/dL Low >39 [facility] ([place]) Comment on above: Result Comment: Perf ormed By: [email or web address] [address] [place] [address] Laboratory Tester: Enio Aranda MD CLIA#: [id number] Performed By: #### V IDH, VITC, CBC, CMP, FRUCTO, GFR, MAGRBC, ANEU, A1C, ADIFF #### [place] [address] #### HOMO, INSLN #### [place] [address] HDL Size 8.7 nm Low >9.0 [facility] ([place]) Comment on above: Result Comment: Rela tive risk: Optimal >9.0; Moderate 8.7-9.0; High <8.7 nm. Reference range is 8.3-10.5 nm. Performed By: [email or web address] [address] [place] [address] Laboratory Tester: Enio Aranda MD CLIA#: [id number] Performed By: #### V IDH, VITC, CBC, CMP, FRUCTO, GFR, MAGRBC, ANEU, A1C, ADIFF #### [address] [address] #### HOMO, INSLN #### [place] [id number] HDL-P 20.1 umol/l Low >32.8 [facility] ([place]) Comment on above: Result Comment: Rela tive risk: Optimal >32.8; Moderate 29.2- 32.8; High <29.2 umol/L. Reference range is 21.1-43.4 umol/L. Performed By: [facility] [address] [place] [address] Laboratory Tester: Enio Aranda MD CLIA#: [id number] Performed By: #### V IDH, VITC, CBC, CMP, FRUCTO, GFR, MAGRBC, ANEU, A1C, ADIFF #### [place] [address] #### HOMO, INSLN #### [place] [id number] Large HDL-P 4.5 umol/l Low >7.2 [facility] ([place]) Comment on above: Result Comment: Rela tive risk: Optimal >7.2; Moderate 5.3-7.2; High <5.3 umol/L. Reference range is >3.5 umol/L. Performed By: [facility]. [address] [place] [address] Laboratory Tester: Enio Aranda MD CLIA#: [id number] Performed By: #### V IDH, VITC, CBC, CMP, FRUCTO, GFR, MAGRBC, ANEU, A1C, ADIFF #### [place] [address] #### HOMO, INSLN #### [place] [address] Large VLDL-P >45.3 High <3.7 [facility] ([place]) Comment on above: Result Comment: Rela tive risk: Optimal <3.7; Moderate 3.7-6.1; High >6.1 nmol/L. Reference range is <16.0 nmol/L. Performed By: [facility] [address] [place] [address] Laboratory Tester: Enio Aranda MD CLIA#: [id number] Performed By: #### V IDH, VITC, CBC, CMP, FRUCTO, GFR, MAGRBC, ANEU, A1C, ADIFF #### [address] [address] #### HOMO, INSLN #### [address] [address] LDL Cholesterol Calculated See Below Normal <100 [facility] ([place]) Comment on above: Result Comment: Delmy rable range <100 mg/dL for primary prevention; <70 mg/dL for patients with CHD or diabetic patients with >= 2 CHD risk factors. LDL cholesterol not calculated. Triglyceride levels greater than 400 mg/dL invalidate calculated LDL results. LDL-C is now calculated using the Rahul calculation, which is a validated novel method providing better accuracy than the Friedewald equation in the estimation of LDL-C. Jonny BOSWELL et al. TITUS. 2013;310(19): 0066-8512 (http://education.BOARDZ.[place]/faq/JXL853) Performed By: [facility]. [address] [place] [address] Laboratory Tester: Enio Aranda MD CLIA#: [id number] Performed By: #### V IDH, VITC, CBC, CMP, FRUCTO, GFR, MAGRBC, ANEU, A1C, ADIFF #### [place] [address] #### HOMO, INSLN #### [address] [address] LDL Size 18.2 nm Low >20.5 [facility] ([place]) Comment on above: Result Comment: Rela tive risk: Optimal >20.5; High <20.6 nm. Reference range is 20.0-22.3 nm. Performed By: [facility] [address] [place] [address] Laboratory Tester: Enio Aranda MD CLIA#: [id number] Performed By: #### V IDH, VITC, CBC, CMP, FRUCTO, GFR, MAGRBC, ANEU, A1C, ADIFF #### [address] [address] #### HOMO, INSLN #### [address] [address] LDL-P 3062 nmol/L High <935 [facility] ([place]) Comment on above: Result Comment: Rela tive risk: Optimal <935; Moderate 935- 1816; High >1816 nmol/L. Reference range is 592-2404 nmol/L. This test was developed and its analytical performance characteristics have been determined by [facility]. It has not been cleared or approved by the U.S. Food and Drug Administration. This assay has been validated pursuant to the CLIA regulations and is used for clinical purposes. Performed By: [facility]. [address] [place] [address] Laboratory Tester: Enio Aranda MD CLIA#: [id number] Performed By: #### V IDH, VITC, CBC, CMP, FRUCTO, GFR, MAGRBC, ANEU, A1C, ADIFF #### [place] [id number] #### HOMO, INSLN #### [address] [address] Non-HDL Cholesterol 183 mg/dL (calc) High <130 [facility] ([place]) Comment on above: Result Comment: For patients with diabetes plus 1 major ASCVD risk factor, treating to a non-HDL-C goal of <100 mg/dL (LDL-C of <70 mg/dL) is considered a therapeutic option. Performed By: [facility] [address] [place] [address] Laboratory Tester: Enio Aranda MD CLIA#: [id number] Performed By: #### V IDH, VITC, CBC, CMP, FRUCTO, GFR, MAGRBC, ANEU, A1C, ADIFF #### [place] [id number] #### HOMO, INSLN #### [address] [address] Small LDL-P >1152 High <467 [facility] ([place]) Comment on above: Result Comment: Rela tive risk: Optimal <467; Moderate 467-820; High >820 nmol/L. Reference range is <1408 nmol/L. Performed By: [facility] [address] [place] [address] Laboratory Tester: Enio Aranda MD CLIA#: [id number] Performed By: #### V IDH, VITC, CBC, CMP, FRUCTO, GFR, MAGRBC, ANEU, A1C, ADIFF #### [place] [address] #### HOMO, INSLN #### [place] [address] TG/HDL-C 40.0 calc High <2.0 [facility] ([place]) Comment on above: Result Comment: Rece ived Date: Performed By: [facility] [address] [place] [address] Laboratory Tester: Enio Aranda MD CLIA#: [id number] Performed By: #### V IDH, VITC, CBC, CMP, FRUCTO, GFR, MAGRBC, ANEU, A1C, ADIFF #### [place] [address] #### HOMO, INSLN #### [place] [address] Triglycerides NMR 960 mg/dL High <150 [facility] ([place]) Comment on above: Result Comment: If a non fasting specimen was collected, consider repeat triglyceride testing on a fasting specimen if clinically indicated. Pantera et al. J of Clin. Lipidol. 215; 9:129-169. There is an increased risk of pancreatitis when the triglyceride concentration is very high (> or = 500 mg/dL, and especially if > or = 1000 mg/dL). Pantera et al. J of Clin Lipidol. 2015;9:129-169. Performed By: [place] [address] Laboratory Tester: Enio Aranda MD CLIA#: [id number] Performed By: #### V IDH, VITC, CBC, CMP, FRUCTO, GFR, MAGRBC, ANEU, A1C, ADIFF #### [address] [address] #### HOMO, INSLN #### [address] [address] VLDL Size 100.0 nm High <47.1 [facility] ([place]) Comment on above: Result Comment: Rela tive risk: Optimal <47.1; Moderate 47.1- 49.0; High >49.0 nm. Reference range is 41.1-61.7 nm. Performing Organization Information: [facility] [employer] [address] [place] [address], [facility] [address] [place] [address] Enio Aranda MD Performed By: [place] [address] Laboratory Tester: Enio Aranda MD CLIA#: [id number] Performed By: #### V IDH, VITC, CBC, CMP, FRUCTO, GFR, MAGRBC, ANEU, A1C, ADIFF #### [address] [address] #### HOMO, INSLN #### [place] [address] MAGRBCon 09-14-2022 Magnesium, RBC 4.8 mg/dL Normal 4.0-6.5 [facility] ([place]) Comment on above: Result Comment: This test was developed and its performance characteristics determined by [facility]'s [facility] [place] [facility]). It has not been cleared or approved by the FDA. [facility] is regulated under CLIA as qualified to perform high-complexity testing. This test is used for clinical purposes. It should not be regarded as investigational or for research. Performed By: [facility] [employer] [address] [place] [address] Laboratory Tester: Juan Miguel Walton III, M.D. CLIA#: [id number] Performed By: #### M AGRBC #### [address] [address] VITCon 09-14-2022 Vitamin C Lvl 20 umol/l Low 23-114 [facility] ([place]) Comment on above: Result Comment: INTE RPRETIVE DATA: Vitamin C (Ascorbic Acid), Plasma Vitamin C concentrations lower than 11 umol/L indicate deficiency. Concentrations between 11 and 23 umol/L are consistent with a moderate risk of deficiency due to inadequate tissue stores. Vitamin C concentration is reported as micromoles per liter (umol/L). To convert concentration to milligrams per deciliter (mg/dL), multiply the result by 0.0176. This test was developed and its performance characteristics determined by [facility]. It has not been cleared or approved by the [place] Food and Drug Administration. This test was performed in a CLIA certified laboratory and is intended for clinical purposes. Performed By: [facility] [address] [place] [address] Db2 Dba: Osei Helton MD, PhD Performed By: #### V IDH, VITC, CBC, CMP, FRUCTO, GFR, MAGRBC, ANEU, A1C, ADIFF #### [place] [address] #### HOMO, INSLN #### [place] [address] Leptinon 09-13-2022 Leptin 1.2 ng/mL Normal 0.5-12.5 [facility] ([place]) Comment on above: Result Comment: INTE RPRETIVE INFORMATION: Leptin Quant by GABY This test was developed and its performance characteristics determined by [facility]. It has not been cleared or approved by the US Food and Drug Administration. This test was performed in a CLIA certified laboratory and is intended for clinical purposes. Performed By: [facility] [address] [place], [place] [id number] Db[employer] Dba: Osei Helton MD, PhD Performed By: #### V IDH, VITC, CBC, CMP, FRUCTO, GFR, MAGRBC, ANEU, A1C, ADIFF #### [place] [address] #### HOMO, INSLN #### [address] [address] METon 09-10-2022 Methylmalonic Acid 114 nmol/L Normal 79-376 [facility] ([place]) Comment on above: Result Comment: This test was developed and its performance characteristics determined by [facility]'s [facility] [place] ([facility] It has not been cleared or approved by the FDA. [facility] is regulated under CLIA as qualified to perform high-complexity testing. This test is used for clinical purposes. It should not be regarded as investigational or for research. Performed By: [facility] [address] [place] [address] Laboratory Tester: Juan Miguel Walton III, M.D. CLIA#: [id number] Performed By: #### V IDH, VITC, CBC, CMP, FRUCTO, GFR, MAGRBC, ANEU, A1C, ADIFF #### [address] [address] #### HOMO, INSLN #### [address] [address] MISCon 09-10-2022 Misc. Send Out See Comments Normal [facility] ([place]) Comment on above: Result Comment: Comp lete reference lab report scanned to EMR. Performed By: #### M ISC #### [address] [address] ANAon 09-09-2022 Nuclear Ab IF (S) [Titer] 40 {titer} Normal Neg 40 [facility] ([place]) Comment on above: Result Comment: JONO Screen and Titer methodology is an immunofluorescent technique utilizing Hep2 Substrate. Performed By: #### V IDH, VITC, CBC, CMP, FRUCTO, GFR, MAGRBC, ANEU, A1C, ADIFF #### [address] [address] #### HOMO, INSLN #### [address] [address] APOAon 09-09-2022 Apolipoprotein A [Mass/Vol] 96 mg/dL Low >114 [facility] ([place]) Comment on above: Result Comment: Perf ormed By: [place] [address] Laboratory Tester: Juan Miguel Walton III, M.D. CLIA#: [id number] Performed By: #### V IDH, VITC, CBC, CMP, FRUCTO, GFR, MAGRBC, ANEU, A1C, ADIFF #### [address] [address] #### HOMO, INSLN #### [address] [address] APOBon 09-09-2022 Apolipoprotein B [Mass/Vol] 93 mg/dL High <90 [facility] ([place]) Comment on above: Result Comment: Mode rate Risk: 90-119 mg/dL High Risk: >119 mg/dL Performed By: [place] [address] Laboratory Tester: Juan Miguel Walton III, M.D. CLIA#: [id number] Performed By: #### V IDH, VITC, CBC, CMP, FRUCTO, GFR, MAGRBC, ANEU, A1C, ADIFF #### [address] [address] #### HOMO, INSLN #### [place] [address] FRUCon 09-09-2022 Fructosamine 329 umol/l High 205-285 [facility] ([place]) Comment on above: Result Comment: Perf ormed By: [place] [address] Laboratory Tester: Juan Miguel Walton III, M.D. CLIA#: [id number] Performed By: #### V IDH, VITC, CBC, CMP, FRUCTO, GFR, MAGRBC, ANEU, A1C, ADIFF #### [address] [address] #### HOMO, INSLN #### [address] [address] LIPOAon 09-09-2022 Lipoprotein a [Mass/Vol] mg/dL Normal <30 [facility] ([place]) Comment on above: Result Comment: Perf ormed By: [facility] [address] [place] [address] Laboratory Tester: Aure Mireles III#: [id number] Performed By: #### V IDH, VITC, CBC, CMP, FRUCTO, GFR, MAGRBC, ANEU, A1C, ADIFF #### [address] [address] #### HOMO, INSLN #### [address] [address] .Auto Diffon 09-08-2022 Basophil, Absolute 0.1 10 3/mcL Normal 0.0-0.2 [facility] ([place]) Comment on above: Performed By: #### M ISC #### [address] [address] Basophils/100 WBC (Bld) 1.0 % Normal 0.0-2.5 [facility] ([place]) Comment on above: Performed By: #### M ISC #### [address] [address] Eosinophil, Absolute 0.2 10 3/mcL Normal 0.0-0.4 [facility] ([place]) Comment on above: Performed By: #### M ISC #### [address] [address] Eosinophils/100 WBC (Bld) 3.3 % Normal 0.0-7.0 [facility] ([place]) Comment on above: Performed By: #### M ISC #### [address] [address] Lymphocyte, Absolute 2.9 10 3/mcL Normal 0.8-3.9 [facility] ([place]) Comment on above: Performed By: #### M ISC #### [address] [address] Lymphocytes/100 WBC (Bld) 39.7 % Normal 10.0-50.0 [facility] ([place]) Comment on above: Performed By: #### M ISC #### [address] [address] Monocyte, Absolute 0.5 10 3/mcL Normal 0.2-1.0 [facility] ([place]) Comment on above: Performed By: #### M ISC #### [address] [address] Monocytes/100 WBC (Bld) 6.3 % Normal 1.7-13.0 [facility] ([place]) Comment on above: Performed By: #### M ISC #### [facility] [address] [address] Neutrophils/100 WBC (Bld) 49.7 % Normal 37.0-80.0 [facility] ([place]) Comment on above: Performed By: #### M ISC #### [address] [address] .GFRon 09-08-2022 GFR Non- 77 ml/min/1.73sqm Normal [facility] ([place]) Comment on above: Result Comment: GFR Population mean for , Non- Americans Ages 20-29 = 116 mL/min/1.73 sq.m. Ages 30-39 = 107 mL/min/1.73 sq.m. Ages 40-49 = 99 mL/min/1.73 sq.m. Ages 50-59 = 93 mL/min/1.73 sq.m. Ages 60-69 = 85 mL/min/1.73 sq.m. Ages 70+ = 75 mL/min/1.73 sq.m. Chronic Kidney Disease: Less than 60 mL/min/1.73 square meters End Stage Renal Disease: Less than 15 mL/min/1.73 square meters Performed By: #### V IDH, VITC, CBC, CMP, FRUCTO, GFR, MAGRBC, ANEU, A1C, ADIFF #### [address] [address] #### HOMO, INSLN #### [address] [address] GFR 93 ml/min/1.73sqm Normal [facility] ([place]) Comment on above: Result Comment: GFR Population mean for , Non- Americans Ages 20-29 = 116 mL/min/1.73 sq.m. Ages 30-39 = 107 mL/min/1.73 sq.m. Ages 40-49 = 99 mL/min/1.73 sq.m. Ages 50-59 = 93 mL/min/1.73 sq.m. Ages 60-69 = 85 mL/min/1.73 sq.m. Ages 70+ = 75 mL/min/1.73 sq.m. Chronic Kidney Disease: Less than 60 mL/min/1.73 square meters End Stage Renal Disease: Less than 15 mL/min/1.73 square meters Performed By: #### V IDH, VITC, CBC, CMP, FRUCTO, GFR, MAGRBC, ANEU, A1C, ADIFF #### [address] [address] #### HOMO, INSLN #### [address] [address] .Morphon 09-08-2022 Platelet Estimate Normal Normal [facility]) Comment on above: Performed By: #### V IDH, VITC, CBC, CMP, FRUCTO, GFR, MAGRBC, ANEU, A1C, ADIFF #### [address] [address] #### HOMO, INSLN #### [place] [address] .NEUABSon 09-08-2022 Neutrophil, Absolute 3.6 10 3/mcL Normal 2.9-6.2 [facility]) Comment on above: Performed By: #### N MRLPD #### [address] [address] A1Con 09-08-2022 HbA1c (Bld) [Mass fraction] 8.7 % High 4.3-6.4 [facility] ([place]) Comment on above: Performed By: #### M ISC #### [address] [address] B12on 09-08-2022 Cobalamin (Vitamin B12) [Mass/Vol] 302 pg/mL Normal 211-911 [facility] ([place]) Comment on above: Performed By: #### V IDH, VITC, CBC, CMP, FRUCTO, GFR, MAGRBC, ANEU, A1C, ADIFF #### [address] [address] #### HOMO, INSLN #### [facility] [address] [place] [address] CBCon 09-08-2022 Erythrocyte distribution width (RBC) [Ratio] 13.1 % Normal 11.5-14.5 [facility] ([place]) Comment on above: Performed By: #### M ISC #### [address] [address] Hematocrit (Bld) [Volume fraction] 46.9 % Normal 42.0-52.0 [facility] ([place]) Comment on above: Performed By: #### M ISC #### [address] [address] Hgb 16.2 G/dL Normal 14.0-18.0 [facility] ([place]) Comment on above: Performed By: #### M ISC #### [address] [address] MCH (RBC) [Entitic mass] 30.7 pg Normal 27.0-31.2 [facility] ([place]) Comment on above: Performed By: #### M ISC #### [address] [address] MCHC 34.7 G/dL Normal 31.8-35.4 [facility] ([place]) Comment on above: Performed By: #### M ISC #### [address] [address] MCV (RBC) [Entitic vol] 88.5 fL Normal 80.0-94.0 [facility] ([place]) Comment on above: Performed By: #### M ISC #### [address] [address] Platelet 148 10 3/mcL Normal 130-400 [facility] ([place]) Comment on above: Performed By: #### M ISC #### [address] [address] Platelet mean volume (Bld) [Entitic vol] 8.2 fL Normal 7.4-10.4 [facility] ([place]) Comment on above: Performed By: #### M ISC #### [address] [address] RBC 5.29 10 6/mcL Normal 4.04-6.13 [facility] ([place]) Comment on above: Performed By: #### M ISC #### [address] [address] WBC 7.2 10 3/mcL Normal 4.6-10.8 [facility] ([place]) Comment on above: Performed By: #### M ISC #### [address] [address] CMPon 09-08-2022 Albumin Level 4.1 G/dL Normal 3.5-5.0 [facility] ([place]) Comment on above: Performed By: #### V IDH, VITC, CBC, CMP, FRUCTO, GFR, MAGRBC, ANEU, A1C, ADIFF #### [address] [address] #### HOMO, INSLN #### [address] [address] Albumin/Globulin [Mass ratio] 1.5 {ratio} Normal 1.1-2.5 [facility] ([place]) Comment on above: Performed By: #### V IDH, VITC, CBC, CMP, FRUCTO, GFR, MAGRBC, ANEU, A1C, ADIFF #### [address] [address] #### HOMO, INSLN #### [address] [address] ALP [Catalytic activity/Vol] 54 U/L Normal 40-135 [facility] ([place]) Comment on above: Performed By: #### V IDH, VITC, CBC, CMP, FRUCTO, GFR, MAGRBC, ANEU, A1C, ADIFF #### [address] [address] #### HOMO, INSLN #### [address] [address] ALT [Catalytic activity/Vol] 37 U/L Normal 16-63 [facility] ([place]) Comment on above: Performed By: #### V IDH, VITC, CBC, CMP, FRUCTO, GFR, MAGRBC, ANEU, A1C, ADIFF #### [place] [address] #### HOMO, INSLN #### [address] [address] AST [Catalytic activity/Vol] 20 U/L Normal 10-40 [facility] ([place]) Comment on above: Performed By: #### V IDH, VITC, CBC, CMP, FRUCTO, GFR, MAGRBC, ANEU, A1C, ADIFF #### [place] [address] #### HOMO, INSLN #### [place] [address] Bili Total 0.8 mg/dL Normal 0.2-1.0 [facility] ([place]) Comment on above: Result Comment: Use of this assay is not recommended for patients undergoing treatment with eltrombopag due to the potential for falsely elevated results. Performed By: #### V IDH, VITC, CBC, CMP, FRUCTO, GFR, MAGRBC, ANEU, A1C, ADIFF #### [place] [address] #### HOMO, INSLN #### [address] [address] BUN/Creatinine Ratio 9 ratio Normal 7-27 [facility] ([place]) Comment on above: Performed By: #### V IDH, VITC, CBC, CMP, FRUCTO, GFR, MAGRBC, ANEU, A1C, ADIFF #### [place] [address] #### HOMO, INSLN #### [place] [address] Calcium [Mass/Vol] 8.5 mg/dL Normal 8.4-10.2 [facility] ([place]) Comment on above: Performed By: #### V IDH, VITC, CBC, CMP, FRUCTO, GFR, MAGRBC, ANEU, A1C, ADIFF #### [address] [address] #### HOMO, INSLN #### [address] [address] Chloride [Moles/Vol] 102 mmol/L Normal 98-107 [facility] ([place]) Comment on above: Performed By: #### V IDH, VITC, CBC, CMP, FRUCTO, GFR, MAGRBC, ANEU, A1C, ADIFF #### [place] [address] #### HOMO, INSLN #### [address] [address] CO2 [Moles/Vol] 27 mmol/L Normal 22-29 [facility] ([place]) Comment on above: Performed By: #### V IDH, VITC, CBC, CMP, FRUCTO, GFR, MAGRBC, ANEU, A1C, ADIFF #### [address] [address] #### HOMO, INSLN #### [address] [address] Creatinine [Mass/Vol] 1.00 mg/dL Normal 0.70-1.30 [facility] ([place]) Comment on above: Performed By: #### V IDH, VITC, CBC, CMP, FRUCTO, GFR, MAGRBC, ANEU, A1C, ADIFF #### [address] [address] #### HOMO, INSLN #### [address] [address] Electrolyte Balance 9.0 mEq/L Normal 4.0-15.0 [facility] ([place]) Comment on above: Performed By: #### V IDH, VITC, CBC, CMP, FRUCTO, GFR, MAGRBC, ANEU, A1C, ADIFF #### [address] [place] [address] #### HOMO, INSLN #### [address] [address] Globulin 2.7 G/dL Normal [facility] ([place]) Comment on above: Performed By: #### V IDH, VITC, CBC, CMP, FRUCTO, GFR, MAGRBC, ANEU, A1C, ADIFF #### [address] [address] #### HOMO, INSLN #### [address] [address] Glucose [Mass/Vol] 140 mg/dL High 70-105 [facility] ([place]) Comment on above: Performed By: #### V IDH, VITC, CBC, CMP, FRUCTO, GFR, MAGRBC, ANEU, A1C, ADIFF #### [address] [address] #### HOMO, INSLN #### [address] [address] Potassium [Moles/Vol] 4.4 mmol/L Normal 3.5-5.1 [facility] ([place]) Comment on above: Performed By: #### V IDH, VITC, CBC, CMP, FRUCTO, GFR, MAGRBC, ANEU, A1C, ADIFF #### [address] [address] #### HOMO, INSLN #### [address] [address] Sodium [Moles/Vol] 138 mmol/L Normal 136-145 [facility] ([place]) Comment on above: Performed By: #### V IDH, VITC, CBC, CMP, FRUCTO, GFR, MAGRBC, ANEU, A1C, ADIFF #### [address] [address] #### HOMO, INSLN #### [address] [address] Total Protein 6.8 G/dL Normal 6.4-8.2 [facility] ([place]) Comment on above: Performed By: #### V IDH, VITC, CBC, CMP, FRUCTO, GFR, MAGRBC, ANEU, A1C, ADIFF #### [address] [address] #### HOMO, INSLN #### [address] [address] Urea nitrogen [Mass/Vol] 9 mg/dL Normal 7-18 [facility] ([place]) Comment on above: Performed By: #### V IDH, VITC, CBC, CMP, FRUCTO, GFR, MAGRBC, ANEU, A1C, ADIFF #### [address] [address] #### HOMO, INSLN #### [address] [address] CORTon 09-08-2022 Cortisol Level 6.0 mcg/dL Normal [facility] ([place]) Comment on above: Result Comment: Thang isol AM Reference Range 6.5-26.0 mcg/dL Cortisol PM Reference Range 3.5-15.0 mcg/dL Performed By: #### V IDH, VITC, CBC, CMP, FRUCTO, GFR, MAGRBC, ANEU, A1C, ADIFF #### [address] [address] #### HOMO, INSLN #### [address] [address] CRPon 09-08-2022 CRP [Mass/Vol] mg/L Normal 0.0-0.9 [facility] ([place]) Comment on above: Performed By: #### V IDH, VITC, CBC, CMP, FRUCTO, GFR, MAGRBC, ANEU, A1C, ADIFF #### [address] [address] #### HOMO, INSLN #### [address] [address] FEon 09-08-2022 Iron [Mass/Vol] 93 ug/dL Normal 65-175 [facility] ([place]) Comment on above: Performed By: #### N MRLPD #### [address] [address] Susan 09-08-2022 Ferritin [Mass/Vol] 892.0 ng/mL High 26.0-388.0 [facility] ([place]) Comment on above: Performed By: #### N MRLPD #### [address] [address] FOLon 09-08-2022 Folate 17.34 ng/mL Normal 5.38-24.00 [facility] ([place]) Comment on above: Performed By: #### V IDH, VITC, CBC, CMP, FRUCTO, GFR, MAGRBC, ANEU, A1C, ADIFF #### [address] [address] #### HOMO, INSLN #### [address] [address] FT4on 09-08-2022 Free T4 [Mass/Vol] 0.96 ng/dL Normal 0.76-1.46 [facility] ([place]) Comment on above: Performed By: #### N MRLPD #### [address] [address] GGTon 09-08-2022 Gamma GT 20 U/L Normal 15-85 [facility] ([place]) Comment on above: Performed By: #### V IDH, VITC, CBC, CMP, FRUCTO, GFR, MAGRBC, ANEU, A1C, ADIFF #### [address] [address] #### HOMO, INSLN #### [address] [address] HOMOon 09-08-2022 Homocysteine 14.7 umol/l High 3.7-13.9 [facility] ([place]) Comment on above: Result Comment: No te - New Reference Range in effect 19 Performed By: #### V IDH, VITC, CBC, CMP, FRUCTO, GFR, MAGRBC, ANEU, A1C, ADIFF #### [address] [address] #### HOMO, INSLN #### [address] [address] IBCon 09-08-2022 TIBC 285 mcg/dL Normal 250-450 [facility] ([place]) Comment on above: Performed By: #### V IDH, VITC, CBC, CMP, FRUCTO, GFR, MAGRBC, ANEU, A1C, ADIFF #### [address] [address] #### HOMO, INSLN #### [address] [address] INSLNon 09-08-2022 Insulin 5.32 munit/L Normal 2.60-37.60 [facility] ([place]) Comment on above: Performed By: #### V IDH, VITC, CBC, CMP, FRUCTO, GFR, MAGRBC, ANEU, A1C, ADIFF #### [place] [address] [place], [place] [address] #### HOMO, INSLN #### [address] [address] LABORATORYOrdered By: SYSTEM SYSTEM on 09-08-2022 25-hydroxyvitamin D3 [Mass/Vol] 19.4 ng/mL Invalid Interpretation Code AO ADM SS Albumin BCP dye [Mass/Vol] 4.1 G/dL Invalid Interpretation Code 3.5 - 5.0 G/dL AO ADM SS Albumin/Globulin [Mass ratio] 1.5 {ratio} Invalid Interpretation Code 1.1 - 2.5 ratio AO ADM SS ALP [Catalytic activity/Vol] 54 U/L Invalid Interpretation Code 40 - 135 U/L AO ADM SS ALT With P-5'-P [Catalytic activity/Vol] 37 U/L Invalid Interpretation Code 16 - 63 U/L AO ADM SS AST With P-5'-P [Catalytic activity/Vol] 20 U/L Invalid Interpretation Code 10 - 40 U/L AO ADM SS Bilirubin [Mass/Vol] 0.8 mg/dL Invalid Interpretation Code 0.2 - 1.0 mg/dL AO ADM SS Calcium [Mass/Vol] 8.5 mg/dL Invalid Interpretation Code 8.4 - 10.2 mg/dL AO ADM SS Chloride [Moles/Vol] 102 mmol/L Invalid Interpretation Code 98 - 107 mmol/L AO ADM SS CO2 [Moles/Vol] 27 mmol/L Invalid Interpretation Code 22 - 29 mmol/L AO ADM SS Cobalamin (Vitamin B12) [Mass/Vol] 302 pg/mL Invalid Interpretation Code 211 - 911 pg/mL AH ADM SS Cortisol [Mass/Vol] 6.0 ug/dL Invalid Interpretation Code AH ADM SS Creatinine [Mass/Vol] 1.00 mg/dL Invalid Interpretation Code 0.70 - 1.30 mg/dL AO ADM SS Electrolyte Balance 9.0 mEq/L Invalid Interpretation Code 4.0 - 15.0 mEq/L AO ADM SS Ferritin [Mass/Vol] 892.0 ng/mL Invalid Interpretation Code 26.0 - 388.0 ng/mL AO ADM SS Folate [Mass/Vol] 17.34 ng/mL Invalid Interpretation Code 5.38 - 24.00 ng/mL AH ADM SS Free T4 [Mass/Vol] 0.96 ng/dL Invalid Interpretation Code 0.76 - 1.46 ng/dL AO ADM SS Gamma glutamyl transferase [Catalytic activity/Vol] 20 U/L Invalid Interpretation Code 15 - 85 U/L AH ADM SS GFR/1.73 sq M.predicted among blacks MDRD (S/P/Bld) [Vol rate/Area] 93 ml/min/1.73sqm Invalid Interpretation Code AO Chemistry S GFR/1.73 sq M.predicted among non-blacks MDRD (S/P/Bld) [Vol rate/Area] 77 ml/min/1.73sqm Invalid Interpretation Code AO Chemistry S Globulin 2.7 G/dL Invalid Interpretation Code AO ADM SS Glucose [Mass/Vol] 140 mg/dL Invalid Interpretation Code 70 - 105 mg/dL AO ADM SS HbA1c (Bld) [Mass fraction] 8.7 % Invalid Interpretation Code 4.3 - 6.4 % AO ADM SS Homocysteine [Moles/Vol] 14.7 umol/L Invalid Interpretation Code 3.7 - 13.9 umol/l AH ADM SS Insulin Qn 5.32 munit/L Invalid Interpretation Code 2.60 - 37.60 mU/L AH ADM SS Iron [Mass/Vol] 93 ug/dL Invalid Interpretation Code 65 - 175 mcg/dL AO ADM SS Iron binding capacity [Mass/Vol] 285 mcg/dL Invalid Interpretation Code 250 - 450 mcg/dL AO ADM SS Magnesium [Mass/Vol] 1.7 mg/dL Invalid Interpretation Code 1.8 - 2.4 mg/dL AO ADM SS Parathyrin.intact [Mass/Vol] 61.5 pg/mL Invalid Interpretation Code 18.5 - 88.0 pg/mL AH ADM SS Phosphate [Mass/Vol] 3.5 mg/dL Invalid Interpretation Code 2.7 - 4.5 mg/dL AO ADM SS Potassium [Moles/Vol] 4.4 mmol/L Invalid Interpretation Code 3.5 - 5.1 mmol/L AO ADM SS Prostate specific Ag [Mass/Vol] 0.61 ng/mL Invalid Interpretation Code 0.00 - 4.00 ng/mL AO ADM SS Protein [Mass/Vol] 6.8 G/dL Invalid Interpretation Code 6.4 - 8.2 G/dL AO ADM SS Sodium [Moles/Vol] 138 mmol/L Invalid Interpretation Code 136 - 145 mmol/L AO ADM SS Testosterone [Mass/Vol] 582.55 ng/dL Invalid Interpretation Code 86.98 - 780.10 ng/dL AH ADM SS TSH Qn 2.65 m[IU]/L Invalid Interpretation Code 0.36 - 3.74 mcIU/mL AO ADM SS Urea nitrogen [Mass/Vol] 9 mg/dL Invalid Interpretation Code 7 - 18 mg/dL AO ADM SS Urea nitrogen/Creatinine [Mass ratio] 9 ratio Invalid Interpretation Code 7 - 27 ratio AO ADM SS Uric Acid Lvl 4.8 mg/dL Invalid Interpretation Code 3.5 - 7.2 mg/dL AO ADM SS LABORATORYOrdered By: Kenny Thomson on 09-08-2022 Basophil, Absolute 0.1 103/mcL Invalid Interpretation Code 0.0 - 0.2 10^3/mcL AO Workflow SS Basophils/100 WBC (Bld) 1.0 % Invalid Interpretation Code 0.0 - 2.5 % AO Workflow SS Eosinophil, Absolute 0.2 103/mcL Invalid Interpretation Code 0.0 - 0.4 10^3/mcL AO Workflow SS Eosinophils/100 WBC (Bld) 3.3 % Invalid Interpretation Code 0.0 - 7.0 % AO Workflow SS Erythrocyte distribution width (RBC) [Ratio] 13.1 % Invalid Interpretation Code 11.5 - 14.5 % AO Workflow SS Hematocrit (Bld) [Volume fraction] 46.9 % Invalid Interpretation Code 42.0 - 52.0 % AO Workflow SS Hemoglobin (Bld) [Mass/Vol] 16.2 G/dL Invalid Interpretation Code 14.0 - 18.0 G/dL AO Workflow SS Lymphocyte, Absolute 2.9 103/mcL Invalid Interpretation Code 0.8 - 3.9 10^3/mcL AO Workflow SS Lymphocytes/100 WBC (Bld) 39.7 % Invalid Interpretation Code 10.0 - 50.0 % AO Workflow SS MCH (RBC) [Entitic mass] 30.7 pg Invalid Interpretation Code 27.0 - 31.2 pg AO Workflow SS MCHC 34.7 G/dL Invalid Interpretation Code 31.8 - 35.4 G/dL AO Workflow SS MCV (RBC) [Entitic vol] 88.5 fL Invalid Interpretation Code 80.0 - 94.0 fL AO Workflow SS Monocyte, Absolute 0.5 103/mcL Invalid Interpretation Code 0.2 - 1.0 10^3/mcL AO Workflow SS Monocytes/100 WBC (Bld) 6.3 % Invalid Interpretation Code 1.7 - 13.0 % AO Workflow SS Neutrophil, Absolute 3.6 103/mcL Invalid Interpretation Code 2.9 - 6.2 10^3/mcL AO Workflow SS Neutrophils/100 WBC (Bld) 49.7 % Invalid Interpretation Code 37.0 - 80.0 % AO Workflow SS Platelet mean volume (Bld) [Entitic vol] 8.2 fL Invalid Interpretation Code 7.4 - 10.4 fL AO Workflow SS Platelets (Bld) [#/Vol] 148 103/mcL Invalid Interpretation Code 130 - 400 10^3/mcL AO Workflow SS RBC (Bld) [#/Vol] 5.29 106/mcL Invalid Interpretation Code 4.04 - 6.13 10^6/mcL AO Workflow SS WBC (Bld) [#/Vol] 7.2 103/mcL Invalid Interpretation Code 4.6 - 10.8 10^3/mcL AO Workflow SS LABORATORYOrdered By: Valentina Burrell on 09-08-2022 Cholesterol [Mass/Vol] 203 mg/dL Invalid Interpretation Code 0 - 200 mg/dL AO Chemistry S Cholesterol in HDL [Mass/Vol] 26 mg/dL Invalid Interpretation Code 40 - 60 mg/dL AO Chemistry S LDL Cholesterol Not Valid Invalid Interpretation Code 0 - 130 AO ADM SS Comment on above: Result Comment: Trig lyceride >400 invalidates the calculated LDL. Platelet Estimate Normal (09/08/22 4:32 PM) Invalid Interpretation Code AO Hematology S Triglyceride [Mass/Vol] 700 mg/dL Invalid Interpretation Code 0 - 150 mg/dL AO ADM SS LABORATORYOrdered By: Shelby Willis on 09-08-2022 CRP [Mass/Vol] mg/dL Invalid Interpretation Code 0.0 - 0.9 mg/dL AO Chemistry S LIPIDon 09-08-2022 LDL Cholesterol Not Valid Normal 0-130 [facility] ([place]) Comment on above: Result Comment: Trig lyceride >400 invalidates the calculated LDL. Performed By: #### V IDH, VITC, CBC, CMP, FRUCTO, GFR, MAGRBC, ANEU, A1C, ADIFF #### [address] [address] #### HOMO, INSLN #### [address] [address] Triglyceride [Mass/Vol] 700 mg/dL High 0-150 [facility] ([place]) Comment on above: Result Comment: Trig lyceride Reference Interval: Less than 150 Normal 150-199 Borderline high risk 200-499 High risk 500 or higher Very high risk Performed By: #### V IDH, VITC, CBC, CMP, FRUCTO, GFR, MAGRBC, ANEU, A1C, ADIFF #### [address] [address] #### HOMO, INSLN #### [address] [address] Cholesterol [Mass/Vol] 203 mg/dL High 0-200 [facility] ([place]) Comment on above: Result Comment: Chol esterol Reference Interval: Less than 200 Desirable 200-239 Borderline high risk 240 and above High risk Performed By: #### V IDH, VITC, CBC, CMP, FRUCTO, GFR, MAGRBC, ANEU, A1C, ADIFF #### [address] [address] #### HOMO, INSLN #### [address] [address] Cholesterol in HDL [Mass/Vol] 26 mg/dL Low 40-60 [facility] ([place]) Comment on above: Performed By: #### V IDH, VITC, CBC, CMP, FRUCTO, GFR, MAGRBC, ANEU, A1C, ADIFF #### [address] [address] #### HOMO, INSLN #### [address] [address] MGon 09-08-2022 Magnesium [Mass/Vol] 1.7 mg/dL Low 1.8-2.4 [facility] ([place]) Comment on above: Performed By: #### N MRLPD #### [address] [address] PHOSon 09-08-2022 Phosphate [Mass/Vol] 3.5 mg/dL Normal 2.7-4.5 [facility] ([place]) Comment on above: Performed By: #### N MRLPD #### [address] [address] PSAon 09-08-2022 Prostate Specific Antigen 0.61 ng/mL Normal 0.00-4.00 [facility] ([place]) Comment on above: Performed By: #### N MRLPD #### [address] [address] PTHon 09-08-2022 PTH, Intact 61.5 pg/mL Normal 18.5-88.0 [facility] ([place]) Comment on above: Performed By: #### V IDH, VITC, CBC, CMP, FRUCTO, GFR, MAGRBC, ANEU, A1C, ADIFF #### [address] [address] #### HOMO, INSLN #### [address] [address] TESTOon 09-08-2022 Testosterone Lvl 582.55 ng/dL Normal 86.98-780.1 0 [facility] ([place]) Comment on above: Result Comment: Norm al Reference Ranges for Females: Female Premenopause Age 21-60 9.01-47.94 ng/dL Female Postmenopause Age 45-89 <7.00-45.62 ng/dL Performed By: #### V IDH, VITC, CBC, CMP, FRUCTO, GFR, MAGRBC, ANEU, A1C, ADIFF #### [address] [address] #### HOMO, INSLN #### [facility] [address] [place], [place] [id number] TSHon 09-08-2022 TSH Qn 2.65 m[IU]/L Normal 0.36-3.74 [facility] ([place]) Comment on above: Performed By: #### N MRLPD #### [address] [address] URICon 09-08-2022 Uric Acid Lvl 4.8 mg/dL Normal 3.5-7.2 [facility] ([place]) Comment on above: Performed By: #### N MRLPD #### [address] [address] VIDHon 09-08-2022 Vit. D 25-Hydroxy 19.4 ng/mL Normal [facility] ([place]) Comment on above: Result Comment: Inte rpretive Values Based on Total 25(OH) Vitamin D: Deficient <20 ng/mL Insufficient 20 - <30 ng/mL Sufficient 30-100 ng/mL Performed By: #### N MRLPD #### [address] [address] Basophil percentageon 2021 Bilirubin [Mass/Vol] 0.40 mg/dL 0.20-1.00 [facility] Work Phone: Comment on above: For patients on eltr ombopag therapy, use of Dimension [place] TBIL is not recommended. Chloride [Moles/Vol] 104 mmol/L 98-107 [facility] Work Phone: Glucose [Mass/Vol] 307 mg/dL 74-106 [facility] Work Phone: Comment on above: Glucose result great er than or equal to 200 mg/dLsuggests DIABETES MELLITUS per A.D.A. criteria. Potassium [Moles/Vol] 4.2 mmol/L 3.5-5.1 [facility] Work Phone: Comment on above: Slight Hemolysis, Re sult may be falsely increased. Protein [Mass/Vol] 7.4 g/dL 6.4-8.2 [facility] Work Phone: Sodium [Moles/Vol] 136 mmol/L 136-145 [facility] Work Phone: [phone] Laboratory - Chemistry and C hemistry - challengeon 03-22-2022 ALP [Catalytic activity/Vol] 64 U/L 45-117 [facility] Work Phone: [phone] ALT [Catalytic activity/Vol] 33 U/L 16-61 [facility] Work Phone: [phone] CO2 [Moles/Vol] 22.0 mmol/L 21.0-32.0 [facility] Work Phone: [phone] Globulin (S) [Mass/Vol] 3.5 g/dL 2.2-4.2 [facility] Work Phone: Urea nitrogen/Creatinine [Mass ratio] 18.5 mg/mg 10-20 [facility] Work Phone: No Panel Informationon 03-22 Estimated GFR (MDRD) Amer 91 mL/min >60 [facility] Work Phone: Comment on above: GFR Calc Estimated GFR (MDRD) Non-Af Amer 75 mL/min >60 [facility] Work Phone: Comment on above: Non- GFR Calc Serum or plasma albumin abelardo urement (mass/volume)on 03-22-2022 Albumin [Mass/Vol] 3.9 g/dL 3.2-5.0 [facility] Work Phone: [phone] Serum or plasma albumin/glob ulin mass ratioon 03-22-2022 Albumin/Globulin [Mass ratio] 1.1 {ratio} 0.9-2.4 [facility] Work Phone: [phone] Serum or plasma calcium abelardo urement (mass/volume)on 03-22-2022 Calcium [Mass/Vol] 9.1 mg/dL 8.5-10.1 [facility] Work Phone: [phone] Serum or plasma creatinine m easurement (mass/volume)on 03-22-2022 Creatinine [Mass/Vol] 1.08 mg/dL 0.70-1.30 [facility] Work Phone: Comment on above: The validity of the calculated GFR & GFRAA in patients over 70 years has not been determined. Clinical correlation is essential. Serum or plasma urea nitroge n measurement (mass/volume)on 03-22-2022 Urea nitrogen [Mass/Vol] 20 mg/dL 7-18 [facility] Work Phone: Thin prep Papanicolaou smear with manual screeningon 03-22-2022 Thin prep Papanicolaou smear with manual screening 11 U/L 15-37 [facility] Work Phone: Comment on above: Slight Hemolysis, Re sult may be falsely increased. Thin prep Papanicolaou smear with manual screening 10 5-15 [facility] Work Phone: Absolute lymphocyte counton 12-16-2021 Lymphocytes Auto (Unsp spec) [#/Vol] 2.03 10*3/uL 0.83-4.51 [facility] Work Phone: Basophil percentageon 2021 Basophils/100 WBC (Bld) 0.4 % 0-1 [facility] Work Phone: Bilirubin [Mass/Vol] 0.80 mg/dL 0.20-1.00 [facility] Work Phone: Comment on above: Slight Lipemia, Resu lt may be falsely increased. For patients on eltrombopag therapy, use of Dimension [place] TBIL is not recommended. Chloride [Moles/Vol] 102 mmol/L 98-107 [facility] Work Phone: Cholesterol [Mass/Vol] 245 mg/dL <200 [facility] Work Phone: [phone] Comment on above: Slight Lipemia, Resu lt may be falsely increased. <200 mg/dL Desirable 200-240 mg/dL Borderline >240 mg/dL High Risk Eosinophils/100 WBC (Bld) 2.5 % 0-5 [facility] Work Phone: Glucose [Mass/Vol] 219 mg/dL 74-106 [facility] Work Phone: [phone] Comment on above: Slight Lipemia, Resu lt may be falsely increased.Glucose result greater than or equal to 200 mg/dLsuggests DIABETES MELLITUS per A.D.A. criteria. Neutrophils (Bld) [#/Vol] 4.0 10*3/uL 2.0-7.7 [facility] Work Phone: Neutrophils/100 WBC (Bld) 59.4 % 47-70 [facility] Work Phone: [phone] Potassium [Moles/Vol] 4.5 mmol/L 3.5-5.1 [facility] Work Phone: [phone] Protein [Mass/Vol] 7.8 g/dL 6.4-8.2 [facility] Work Phone: [phone] Sodium [Moles/Vol] 133 mmol/L 136-145 [facility] Work Phone: [phone] Triglyceride [Mass/Vol] 1661 mg/dL <199 [facility] Work Phone: Comment on above: The drugs N-Acetylcy steine and Metamizole may falsely depress this assay. Slight Lipemia, Result may be falsely increased. Serum Triglycerides Reference Interval Normal <150 mg/dL Borderline high 150 - 199 mg/dL High 200 - 499 mg/dL Very High > or = 500 mg/dL WBC (Bld) [#/Vol] 6.7 10*3/uL 4.4-11.0 [facility] Work Phone: [phone] Blood erythrocytes count (nu mber/volume)on 12-16-2021 RBC (Bld) [#/Vol] 5.66 10*6/uL 4.6-6.2 [facility] Work Phone: [phone] Blood hemoglobin measurement (mass/volume)on 12-16-2021 Hemoglobin (Bld) [Mass/Vol] 17.4 g/dL 13.0-16.5 [facility] Work Phone: [phone] Blood lymphocytes/100 leukoc yteson 12-16-2021 Lymphocytes/100 WBC (Bld) 30.4 % 19-41 [facility] Work Phone: Blood monocytes/100 leukocyt eson 12-16-2021 Monocytes/100 WBC (Bld) 6.9 % 0-10 [facility] Work Phone: Blood platelet mean volumeon 12-16-2021 Platelet mean volume (Bld) [Entitic vol] 10.7 fL 6.2-12.0 [facility] Work Phone: Determination of erythrocyte mean corpuscular volume (MCV)on 12-16-2021 MCV (RBC) [Entitic vol] 86.6 fL 80-94 [facility] Work Phone: Hematocrit Auto (Bld) [Volum e fraction]on 12-16-2021 Hematocrit (Bld) [Volume fraction] 49.0 % 40-54 [facility] Work Phone: Laboratory - Chemistry and C hemistry - challengeon 12-16-2021 ALP [Catalytic activity/Vol] 57 U/L 45-117 [facility] Work Phone: ALT [Catalytic activity/Vol] 36 U/L 16-61 [facility] Work Phone: [phone] CO2 [Moles/Vol] 22.0 mmol/L 21.0-32.0 [facility] Work Phone: [phone] Comment on above: Slight Lipemia, Resu lt may be falsely increased. Globulin (S) [Mass/Vol] 3.9 g/dL 2.2-4.2 [facility] Work Phone: Urea nitrogen/Creatinine [Mass ratio] 20.2 mg/mg 10-20 [facility] Work Phone: Laboratory - Hematology and Cell countson 12-16-2021 Erythrocyte distribution width (RBC) [Entitic vol] 39.1 fL 35.1-43.9 [facility] Work Phone: Erythrocyte distribution width (RBC) [Ratio] 12.5 % 11.6-14.6 [facility] Work Phone: Immature granulocytes/100 WBC (Bld) 0.400 % 0.0-0.9 [facility] Work Phone: Comment on above: IG% - Immature Granu locytes (promyelocytes, myelocytes and metamyelocytes) > 1% indicates that a LEFT SHIFT is Present. MCH (RBC) [Entitic mass] 30.7 pg 27.0-32.0 [facility] Work Phone: [phone] Nucleated RBC/100 WBC (Bld) [Ratio] 0 % 0-5 [facility] Work Phone: [phone] MCHC Auto (RBC) [Mass/Vol]on 12-16-2021 MCHC (RBC) [Mass/Vol] 35.5 g/dL 32-36 [facility] Work Phone: [phone] Panel Informationon 12-16 Estimated GFR (MDRD) Amer 101 mL/min >60 [facility] Work Phone: Comment on above: GFR Calc Estimated GFR (MDRD) Non-Af Amer 83 mL/min >60 [facility] Work Phone: [phone] Comment on above: Non- GFR Calc Prostate Specific Antigen Comment . [facility] Work Phone: Comment on above: The percent free PSA is performed on a reflex basis onlywhen the total PSA is between 4.0 and 10.0 ng/mL.Performed at: [address] [id number] Director: Zander Mo PhD, Phone: [phone] Prostate Specific Antigen Total 0.6 ng/mL 0.0-4.0 [facility] Work Phone: Comment on above: Oseas ECLIA methodol ogy.According to the [place] [employer], Serum PSAshould decrease and remain at undetectable levels afterradical prostatectomy. The AUA defines biochemicalrecurrence as an initial PSA value 0.2 ng/mL or greaterfollowed by a subsequent confirmatory PSA value 0.2 ng/mLor greater. Values obtained with different assay methods orkits cannot be used interchangeably. Results cannot beinterpreted as absolute evidence of the presence or absenceof malignant disease. Platelets bldon 12-16-2021 Platelets (Bld) [#/Vol] 155 10*3/uL 150-450 [facility] Work Phone: Serum or plasma albumin abelardo urement (mass/volume)on 12-16-2021 Albumin [Mass/Vol] 3.9 g/dL 3.2-5.0 [facility] Work Phone: Serum or plasma albumin/glob ulin mass ratioon 12-16-2021 Albumin/Globulin [Mass ratio] 1.0 {ratio} 0.9-2.4 [facility] Work Phone: Serum or plasma calcium abelardo urement (mass/volume)on 12-16-2021 Calcium [Mass/Vol] 8.5 mg/dL 8.5-10.1 [facility] Work Phone: Comment on above: Slight Lipemia, Resu lt may be falsely increased. Serum or plasma cholesterol in HDL measurement (mass/volume)on 12-16-2021 Cholesterol in HDL [Mass/Vol] 18 mg/dL >40 [facility] Work Phone: Comment on above: The drugs N-Acetylcy steine and Metamizole may falsely depress this assay. Reference Range HDL <40 mg/dL Low HDL Cholesterol HDL >or= 60 mg/dL High HDL Cholesterol Serum or plasma cholesterol in VLDL measurement (mass/volume)on 12-16-2021 Cholesterol in VLDL [Mass/Vol] TNP [facility] Work Phone: Comment on above: Test not performed Serum or plasma creatinine m easurement (mass/volume)on 12-16-2021 Creatinine [Mass/Vol] 0.99 mg/dL 0.70-1.30 [facility] Work Phone: Comment on above: Slight Lipemia, Resu lt may be falsely increased.The validity of the calculated GFR & GFRAA in patients over 70 years has not been determined. Clinical correlation is essential. Serum or plasma low density lipoprotein (LDL) cholesterol measurement (mass/volume)on 12-16-2021 Cholesterol in LDL [Mass/Vol] TNP [facility] Work Phone: Comment on above: Test not performed Serum or plasma urea nitroge n measurement (mass/volume)on 12-16-2021 Urea nitrogen [Mass/Vol] 20 mg/dL 7-18 [facility] Work Phone: Thin prep Papanicolaou smear with manual screeningon 12-16-2021 Thin prep Papanicolaou smear with manual screening 20 U/L 15-37 [facility] Work Phone: Thin prep Papanicolaou smear with manual screening 9 5-15 [facility] Work Phone: Whole blood hemoglobin A1c/t otal hemoglobin ratio (mass fraction)on 12-16-2021 HbA1c (Bld) [Mass fraction] 9.6 % 3.8-5.6 [facility] Work Phone: Comment on above: Normal < 5.7 % Predi abetic 5.7 - 6.4 % Diabetic >or= 6.5 % Please note range changes. CMPon 05-20-2017 Albumin mass conc 4.4 g/dL Normal 3.2-5.0 [facility] Comment on above: Performed By: #### 2 [id number] ####MAGDIEL [address] [place] [address] Albumin/Globulin mass ratio 1.6 {ratio} Normal 1.1-1.9 [facility] Comment on above: Performed By: #### 2 [id number] ####MAGDIEL [address] [place] [address] Alk Phos 41 Int._Unit/L Low 42-121 [facility] Comment on above: Performed By: #### 2 [id number] ####MAGDIEL [address] [place] [address] ALT enzyme act/vol 30 Int._Unit/L Normal 10-40 [facility] Comment on above: Performed By: #### 2 [id number] ####MAGDIEL [address] [place] [address] AST enzyme act/vol 23 Int._Unit/L Normal 10-42 [facility] Comment on above: Performed By: #### 2 [id number] ####MAGDIEL [id number] [place] [address] Bili Total 1.0 mg/dL Normal 0.2-1.0 [facility] Comment on above: Performed By: #### 2 [id number] ####MAGDIEL [id number] [place] [address] Creatinine mass conc 0.9 mg/dL Normal 0.6-1.3 [facility] Comment on above: Performed By: #### 2 [id number] ####MAGDIEL [id number] [place] [address] Globulin Calculated mass conc (S) 2.8 g/dL Normal 2.0-4.0 [facility] Comment on above: Performed By: #### 2 [id number] ####MAGDIEL [id number] [place] [address] Protein mass conc 7.2 g/dL Normal 6.4-8.3 [facility] Comment on above: Performed By: #### 2 [id number] ####MAGDIEL [address] [place] [address] Urea nitrogen mass conc 17 mg/dL Normal 7-18 [facility] Comment on above: Performed By: #### 2 [id number] ####MAGDIEL [address] [place] [address] Urea nitrogen/Creatinine mass ratio 18.9 ratio Normal 5.4-30.0 [facility] Comment on above: Performed By: #### 2 [id number] ####MAGDIEL [address] [place] [address] Calcium mass conc 9.1 mg/dL Normal 8.4-10.2 [facility] Comment on above: Performed By: #### 2 [id number] ####MAGDIEL [address] [place] [address] Chloride molar conc 104 mmol/L Normal 98-107 [facility] Comment on above: Performed By: #### 2 [id number] ####MAGDIEL [id number] [place] [address] CO2 molar conc 24.5 mmol/L Normal 24.0-30.0 [facility] Comment on above: Performed By: #### 2 [id number] ####MAGDIEL [id number] [place] [address] Glucose mass conc 152 mg/dL High 70-99 [facility] Comment on above: Performed By: #### 2 [id number] ####MAGDIEL [id number] [place] [address] Potassium molar conc 4.3 mmol/L Normal 3.5-5.1 [facility] Comment on above: Performed By: #### 2 [id number] ####MAGDIEL [address] [place] [address] Sodium molar conc 135 mmol/L Low 136-145 [facility] Comment on above: Performed By: #### 2 [id number] ####MAGDIEL [address] [place] [address] [id number] 05-20-2017 Hemoglobin A1c/Hemoglobin.tota l mass fraction (Bld) 6.7 % High 4.0-6.3 [facility] Comment on above: Performed By: #### 3 [id number] ####MAGDIEL Chemistry Manual [id number] [place] [address] Lipid Profileon 05-20-2017 Cholesterol in HDL mass conc 23 mg/dL Low >=41 [facility] Comment on above: Performed By: #### 3 [id number] ####MAGDIEL [address] [place] [address] Cholesterol in LDL mass conc 42 mg/dL Normal 0-130 [facility] Comment on above: Result Comment: <100 [id number] NEAR / ABOVE [id number] BORDERLINE [id number] HIGH>190 VERY HIGHCALC LDL NOT VALID WHEN TRIGLYCERIDE IS >400 MG/DL Performed By: #### 3 [id number] ####MAGDIEL [address] [place] [address] Cholesterol in VLDL mass conc 110 mg/dL Normal [facility] Comment on above: Performed By: #### 3 [id number] ####MAGDIEL [address] [place] [address] Cholesterol mass conc 175 mg/dL Normal 50-200 [facility] Comment on above: Result Comment: TOTA L CHOLEESTEROL: <200 NORMAL 200 - 239 BORDERLINE HIGH >240 HIGH Performed By: #### 3 [id number] ####MAGDIEL [address] [place] [address] Triglyceride mass conc 550 mg/dL High 35-150 [facility] Comment on above: Result Comment: <150 [id number] BORDERLINE [id number] HIGH>500 VERY HIGH Performed By: #### 3 [id number] ####MAGDIEL [address] [place] [address] TSHon 05-20-2017 Thyrotropin Qn 1.98 mIU/m Normal 0.30-5.60 [facility] Comment on above: Performed By: #### 2 [id number] ####MAGDIEL [address] [place] [address] eGFRon 05-20-2017 eGFR AA >60 Normal [facility] Comment on above: Order Comment: Order added by Discern Expert. Performed By: #### [id number] ####MAGDIEL [id number] [place] [address] GFR/1.73 sq M predicted among non-blacks MDRD vol rate/area (S/P/Bld) mL/min/{1.73_m2} [facility] Comment on above: Order Comment: Order added by Discern Expert. Performed By: #### [id number] ####MAGDIEL [id number] [place] [address] Vital Signs Date Time Vital Sign Value Performing Clinician Supriya dover 11-15-2022 13:42-0400 Body height 182.88 cm DO Lamine Leon Work Phone: [facility] 11-15-2022 13:42-0400 Body mass index (BMI) [Ratio] 28.5 kg/m2 DO Lamine Leon Work Phone: [facility] 11-15-2022 13:42-0400 Body weight 95.25 kg DO Lamine Leon Work Phone: [facility] Encounters Encounter Date Encounter Type Care Provider Facility Start: 01-25-2023 End: 01-25-2023 ambulatory DO Lamine Leon Work Phone: [facility] Work Phone: Start: 01-25-2023 End: 01-25-2023 Discharged Recurring DO Laminesusana Clementnger Work Phone: [facility]-Occupational Therapy Work Phone: Start: 01-03-2023 End: 01-03-2023 ambulatory [facility] Facility:[facility] Start: 01-03-2023 End: 01-03-2023 Subsequent hospital visit by physician Xr [facility] Mob Work Phone: Radiology Comment on above: Fracture of radius, proximal, with ulna, left, closed, sequela [S52.002S, S52.102S] Start: 12-28-2022 Registered Recurring DO Lola malik Carolyn Work Phone: [facility]-Occupational Therapy Work Phone: Start: 12-23-2022 Orders Only Javier Bear MD Work Phone: Orthopaedics Comment on above: Fracture of radius, proximal, with ulna, left, closed, sequela (Primary Dx) Start: 12-22-2022 End: 12-22-2022 ambulatory DO Lamine Leon Work Phone: [facility] Work Phone: Start: 12-22-2022 End: 12-22-2022 Patient encounter procedure DO Lamine Leon Work Phone: [facility]-Laboratory Work Phone: Start: 12-06-2022 End: 12-07-2022 ambulatory JAVIER BEAR Facility:[facility] Start: 12-06-2022 End: 12-06-2022 Patient encounter procedure Rupa Arriola PA-C Work Phone: Orthopaedics Comment on above: Fracture of radius, proximal, with ulna, left, closed, sequela (Primary Dx) Start: 12-06-2022 End: 12-06-2022 Subsequent hospital visit by physician Rishabh [facility] Margarito Work Phone: Radiology Comment on above: Fracture of radius, proximal, with ulna, left, closed, sequela [S52.002S, S52.102S] Start: 12-01-2022 End: 12-01-2022 ambulatory [facility] Facility:[facility] Start: 12-01-2022 End: 12-01-2022 Patient encounter procedure DO Lamine Leon Work Phone: [facility]-Laboratory Work Phone: Start: 11-30-2022 Orders Only Rupa Vefrancia palomo PA-C Work Phone: Orthopaedics Comment on above: Fracture of radius, proximal, with ulna, left, closed, sequela (Primary Dx); Olecranon fracture, left, closed, initial encounter Start: 11-22-2022 Telephone encounter Javier smith MD Work Phone: Orthopaedics Comment on above: Schedule Surgery Start: 11-22-2022 End: 11-22-2022 ambulatory JAVIER BEAR Facility:[facility] Start: 11-22-2022 End: 11-22-2022 Patient encounter procedure Javier Bear MD Work Phone: Orthopaedics Comment on above: Olecranon fracture, left, closed, initial encounter (Primary Dx) Start: 11-15-2022 End: 11-15-2022 ambulatory Marlene Irving Facility:[facility] Start: 11-15-2022 Telephone encounter Javier smith MD Work Phone: Orthopaedics Comment on above: Appointment Start: 11-15-2022 End: 11-15-2022 Patient encounter procedure DO Lamine Leon Work Phone: [facility] Work Phone: Start: 11-04-2022 End: 11-05-2022 ambulatory LAMINE LEON DO Facility:B Start: 11-04-2022 End: 11-04-2022 Patient encounter procedure MORENO YING DO [facility] Start: 11-02-[address] Moreno Salomon [id number] Start: 10-15-2022 End: 10-16-2022 ambulatory LAMINE LEON DO Facility:B Start: 10-15-2022 End: 10-15-2022 Patient encounter procedure MORENO RITTERLEVARHERNAN DO [facility] Start: 09-14-2022 End: 09-15-2022 ambulatory LAMINE LEON DO Facility:[facility] Start: 09-14-2022 End: 09-14-2022 Patient encounter procedure MORENO RITTERLEVARHERNAN DO [facility] Start: 09-09-2022 End: 09-10-2022 ambulatory MORENO YING DO Facility:[facility] Start: 09-09-2022 End: 09-09-2022 Patient encounter procedure MORENO RITTERLEVARHERNAN DO [facility] Start: 09-08-2022 End: 09-09-2022 ambulatory MORENO RITTERMARK ANTHONYCHANI Facility:B Start: 09-08-2022 End: 09-08-2022 Patient encounter procedure PHY WO ID REFERRING [facility] Start: 03-22-2022 End: 03-22-2022 ambulatory [facility] Work Phone: Start: 03-22-2022 End: 03-22-2022 Patient encounter procedure [facility] Start: 12-16-2021 End: 12-16-2021 Patient encounter procedure [facility] Start: 02-14-2018 End: 02-15-2018 Patient encounter Leland Potter Facility:[facility] Start: 05-23-2017 End: 05-24-2017 Patient encounter Leland Potter Facility:[facility] Start: 05-20-2017 End: 05-21-2017 Patient encounter Leland Potter Facility:[facility] Procedures Date Procedure Procedure Detail Performing Clinician Start: 01-03-2023 Radex elbow 2 views Ashely Bear MD Work Phone: Start: 12-06-2022 Radex elbow 2 views Syed Arriola PA-C Work Phone: Plan of Treatment Date Care Activity Detail Author Start: 11-11-2032 Urine microalbumin profile DTaP,Tdap,Td Vaccine (2 - Td or Tdap) [facility] Start: 11-11-2025 DIABETES SCREEN DIABETES SCREEN [facility] Start: 11-11-2025 Diabetes Screening Diabetes Screenin g [facility] Start: 01-14-2023 Influenza vaccination [facility] Start: 11-15-2022 Patient referral [facility] Work Phone: Start: 05-16-2022 [facility]ION [facility] Start: 02-25-2020 PROSTATE CANCER SCREENING DISCUSSION PROSTATE CANCER SCREENING DISCUSSION [facility] Start: 10-12-2019 DIABETES SCREEN DIABETES SCREEN [facility] Start: 2015 SHINGRIX VACCINE (1 of 2) SHINGRIX VACCINE (1 of 2) [facility] Start: 2010 COLOGUARD (FIT-DNA) COLOGUARD (FIT-D NA) [facility] Start: 2010 Colonoscopy COLONOSCOPY [facility] Start: 2010 COLORECTAL CANCER SCREENING COLORECTAL CANCER SCREENING [facility] Start: [address] [facility] Start: 2010 FECAL OCCULT BLOOD FECAL OCCULT BLOO D [facility] Start: [address] [facility] Start: 02-25-2000 Lipid 1996 panel - S adelina or Plasma Lipid Screening [facility] Start: 02-25-2000 LIPID SCREEN LIPID SCREEN [facility] Start: 02-25-1984 Urine microalbumin profile DTAP,TDAP,TD (1 - Tdap) [facility] Start: 1983 HEPATITIS C SCREENING HEPATITIS C SC REENING [facility] Start: 1983 HIV SCREENING HIV SCREENING [facility] Start: 1965 COVID-19 VACCINE (#1) COVID-19 VACCI NE (#1) [facility] Start: 1965 HEPATITIS B (1 of 3 - 3-dose series) HEPATITIS B (1 of 3 - 3-dose series) [facility] Start: 1965 Hepatitis B Vaccine (1 of 3 - 3-dose series) Hepatitis B Vaccine (1 of 3 - 3-dose series) [facility] Patient referral [facility] Work Phone: End: 12-30-2023 XR ELBOW GENERAL 2V AP/LAT LEFT XR ELBOW GENERAL 2V AP/LAT LEFT Radiology Routine Fracture of radius, proximal, with ulna, left, closed, sequela 1 Occurrences starting 11/30/2022 until 12/30/2023 [place] Work Phone: Comment on above: 1 Occurrences starti ng 11/30/2022 until 12/30/2023 End: 01-22-2024 XR ELBOW GENERAL 2V AP/LAT LEFT XR ELBOW GENERAL 2V AP/LAT LEFT Radiology Routine Fracture of radius, proximal, with ulna, left, closed, sequela 1 Occurrences starting 12/23/2022 until 01/22/2024 [place] Work Phone: Comment on above: 1 Occurrences starti ng 12/23/2022 until 01/22/2024 [facility] [place] Payers Date Payer Category Payer Unknown [id number] 2022 Self-pay 2022 Medicaid [id number] 2022 Private Health Insurance [id number] 2017 Unknown 1965 Unknown [id number] 1965 Unknown [id number] 1965 Unknown [id number] 1965 Unknown [id number] 1965 Unknown [id number] 1965 Unknown [id number] Unknown [facility] [id number] Unknown [id number] Unknown [id number] Unknown [id number] Unknown [id number] Unknown [id number] Social History Date Type Detail Facility [facility] Work Phone: Start: 1965 Sex Assigned At Male [facility] Tobacco smoking status No Smokin g Status Entered [facility] Start: 10-11-2016 End: 01-03-2023 Tobacco smoking status NHIS Never smoked tobacco [facility] Start: 10-11-2016 End: 12-06-2022 Alcohol intake Current non-drinker of alcohol (finding) [facility] Start: 10-11-2016 Alcohol Comment rarely [facility] Start: 1965 Sex Assigned At Not on file [facility] Start: 11-22-2022 End: 11-23-2022 History of Social function [facility] Start: 11-22-2022 End: 11-23-2022 Tobacco use panel [facility] National Score (1-10 0), lower number is lower risk 91 [facility] Start: 11-15-2022 Tobacco [facility] if ever smoked [facility] Medical Equipment Procedure Code Equipment Code Equipment Origin al Text Equipment Identifier Dates Plate Lcp Stainl ess Steel 90mm Bone 2 Hole Variable Angle 2.7/3.5mm Screw - [id number] Start: 11-24-2022 Screw Lcp 2.7mm T8 Stainless Steel 18mm Bone Variable Angle Lock Self Tap - [id number] Start: 11-24-2022 Clinical Notes 09-08-2022 to 01-25-2023 Note Date & Type Note Facility 01-25-2023 Discharge summary Note Date/Time January 25, 2023 10:22[facility] [address] [place] [address] / REHABILITATION SERVICES DISCHARGE SUMMARY MR#: [id number] Acct: [id number] Name: WILBERT MCGILL Rep #: [id number] : 1965 57 From: ySl CAGE/Mani, JANETT Referring DrLeo: Status: REG RCR Eval Date: Discharge Date: Discharge Summary D/C Summary: It has been my pleasure to treat WILBERT MCGILL under orders from RUPA ARRIOLA, for the diagnosis of fracture of proximal radius and ulna, left, closed, sequela for a total of 7 visit(s). Please see the following information for a summary of their discharge status. Overall Improvement % Improvement: 95 Objective Objective/Function: left elbow -20/135 triceps right 36 #left 22# peak force pt is performing a HEP of t-band and biking when he has time. [facility]. Pt agrees to D/C and states he will continue with his strengthening. Goals Patient Goals: Regain Strength, Return to Work, Decrease Swelling/Stiffness, Sleep Better, Decrease Tingling/Numbness, Increase ROM, Be More Independent in ADLS, Resume Former Household Responsibilities (Cooking,Cleaning,Yard, etc.) andResume Hobbies Goal:: will not initiate PRE until week 6 or surgeon clears. 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 Pt will gain tripod broodmare foreman strength by 10# for increased ability to perform ADL/IADLs by discharge. Goal:: Pt will gain 20* of Left elbow flexion to perform daily tasks by discharge. pt will demo increase in left elbow ext. to -10 or less to increase pts IND withADLs and IADLs by d.c Goal:: pt will demo understanding of scar mtg. by end of 3rd session to decreaserisk of scar adhesions. Goal:: Pt to demo overall increased indep in ADL/IADL tasks by decreased total DASH score by 10 points by discharge. Plan Plan: D/C D/C Information Discharge Comments: pt was seen 7 OT sessions following left elbow ORIF. pt has met goals with OT and agrees to D/C with HEP. d/c sentence: If there are questions or concerns regarding this patient's occupational therapy, please fell free to call me at [phone]. Thank you for the referral of this patient. Sincerely, Syl Betancourt OTR/Mani, ALVIN <Electronically signed by Syl CAGE/ALVIN Singleton> 01/25/23 1462 CC: Lamine Leon DO; RUPA ARRIOLA ~ MK Signed [facility] Work Phone: 1(771) 424-728708-21-2023 NoteHNO ID: [id number] Author: Javier Bear MD Service: ? Author Type: Physician Type: Progress Notes Filed: 01/03/2023 1:27 PM Note Text: Javier Bear MD Department of Orthopaedics Orthopaedics [address] [facility] [address] Dept: [phone] Dept January 03, 2023 CHIEF COMPLAINT: Post Op of the Left Elbow. HPI Patient here for 5 weeks 5 days post op Left elbow ORIF proximal ulna. Patient denies any pain today. He has been going to OT and home exercises. X-rays done today at [facility]. ASSESSMENT: S52.002S, S52.102S Fracture of radius, proximal, with ulna, left, closed, sequela (primary encounter diagnosis) SUMMARY/PLAN: Patient is doing quite well. He is gaining a lot more motion. Is been taking it easy but does admit to getting on his bicycle just for a bit yesterday. From a healing standpoint, I think that is fine he certainly needs to be cautious for another number of weeks. Continue motion and starting strengthening is certainly appropriate at this point. Exam: Motion is about 110 degrees to lacking 10 degrees of terminal extension. Imagin views of the elbow show appropriate fracture healing and hardware without concerns. Mr. Wilbert Mcgill was advised as to contrast therapies and/or to take analgesics/anti-inflammatories as needed and all contraindications were reviewed. Supporting Information Below: Medications: Current Outpatient Medications Medication Sig rosuvastatin (CRESTOR) 5 mg tablet Take 1 tablet by mouth every afternoon. aspirin, enteric coated (ASPIRIN, ENTERIC COATED) 81 mg EC tablet Take 1 tablet by mouth every afternoon. FREESTYLE CAROL 3 SENSOR molina apply sensor every 14 days lisinopril (ZESTRIL) 10 mg tablet Take 10 mg by mouth once daily. metFORMIN (GLUCOPHAGE) 500 mg tablet Take 500 mg by mouth twice daily. No current facility-administered medications for this visit. Allergies: Patient has no known allergies. Javier Bear [facility]08-21-2023 NoteHNO ID: [id number] Author: Roz Cross RT(R) Service: Radiology Author Type: Technologist Type: Progress Notes Filed: 01/03/2023 12:20 PM Note Text: Radiology Service Progress Note PATIENT NAME: Wilbert Mcgill DATE OF SERVICE: January 03, 2023 TIME: 12:13 PM PATIENT IDENTITY VERIFICATION COMPLETED USING TWO (2) IDENTIFIERS: Name and Date of confirmed by patient verbally. FALL SCREENING: Has the patient had 2 falls in the last year or 1 fall with injury or currently using an Ambulatory Assistive Device (Walker, Cane, Wheelchair, Crutches, etc.)? No PATIENT GENDER DATA: Male PATIENT RELEVANT IMPLANT DATA REVIEWED: Yes RADIOLOGY DEPARTMENT: General X-ray: Exam(s) Completed: Upper Extremity X-Ray(s): Elbow, left PERIPHERAL IV DATA: Not applicable SIGNED BY: JUANI Gupta) January 03, 2023 12:13 [facility]08-21-2023 History of Present illness Narrative* Roz Cross RT(R) - 01/03/2023 12:10 PM EDT Radiology Service Progress Note PATIENT NAME: Wilbert Mcgill DATE OF SERVICE: January 03, 2023 TIME: 12:13 PM PATIENT IDENTITY VERIFICATION COMPLETED USING TWO (2) IDENTIFIERS: Name and Date of confirmedby patient verbally. FALL SCREENING: Has the patient had 2 falls in the last year or 1 fall with injury or currently using an Ambulatory Assistive Device (Walker, Cane, Wheelchair, Crutches, etc.)? No PATIENT GENDER DATA: Male PATIENT RELEVANT IMPLANT DATA REVIEWED: Yes RADIOLOGY DEPARTMENT: General X-ray: Exam(s) Completed: Upper Extremity X- Ray(s): Elbow, left PERIPHERAL IV DATA: Not applicable SIGNED BY: RT Candy(Michele) January 03, 2023 12:13 PM documented [facility]-2023 NoteHNO ID: [id number] Author: Rupa Arriola PA-C Service: ? Author Type: Physician Automobile Upholsterer Apprentice Type: Progress Notes Filed: 12/06/2022 12:32 PM Note Text: Rupa Arriola PA-C Department of Orthopaedics Orthopaedics [address] [facility] [address] Dept: [phone] Dept December 06, 2022 CHIEF COMPLAINT: Post Op of the Left Elbow (1 week 5 days post ORIF proximal ulna Left elbow). ASSESSMENT: S52.002S, S52.102S Fracture of radius, proximal, with ulna, left, closed, sequela (primary encounter diagnosis) SUMMARY/PLAN: Patient presents 1 week and 5 days status post left ulna ORIF. He is doing much better, still having some aching pain but much improved. We will get him over to [facility] for an Orthoplast splint and to start a gentle motion program. Advised patient that his incision can get wet in the shower and he can apply lotion to the elbow. He may also work on gentle range of motion with the elbow but needs to avoid any heavy lifting, pushing or pulling with the operative arm. We will see him back in 1 month as planned. Exam: Left elbow incision site is well approximated without erythema or drainage, there is resolving ecchymosis along the medial epicondyle extending down into the flexor aspect of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 Dates Lamine Leon , DO Primary Care Provider Active MORENO YING Attending Provider, Referring Provider Active Team Status: Inactive Member Role Status Dates Lamine Leon , Primary Care Provider Active FLAKO URIBE Attending Provider, Referring Provide r Active Source Comments (unrecognize d section and content) In the event this informatio n is protected by the Federal Confidentiality of Alcohol and Drug Abuse Patient Records regulations: The Federal rules restrict any use of the information to criminally investigate or prosecute any alcohol or drug abuse patient.[facility] CenterIn the event this information is protected by the Federal Confidentiality of Alcohol and Drug Abuse Patient Records regulations: The Federal rules restrict any use of the information to criminally investigate or prosecute any alcohol or drug abuse patient.[facility] CenterIn the event this information is protected by the Federal Confidentiality of Alcohol and Drug Abuse Patient Records regulations: The Federal rules restrict any use of the information to criminally investigate or prosecute any alcohol or drug abuse patient.[facility] CenterIn the event this information is protected by the Federal Confidentiality of Alcohol and Drug Abuse Patient Records regulations: The Federal rules restrict any use of the information to criminally investigate or prosecute any alcohol or drug abuse patient.[facility] CenterIn the event this information is protected by the Federal Confidentiality of Alcohol and Drug Abuse Patient Records regulations: The Federal rules restrict any use of the information to criminally investigate or prosecute any alcohol or drug abuse patient.[facility] CenterIn the event this information is protected by the Federal Confidentiality of Alcohol and Drug Abuse Patient Records regulations: The Federal rules restrict any use of the information to criminally investigate or prosecute any alcohol or drug abuse patient.[facility] CenterIn the event this information is protected by the Federal Confidentiality of Alcohol and Drug Abuse Patient Records regulations: The Federal rules restrict any use of the information to criminally investigate or prosecute any alcohol or drug abuse patient.[facility] CenterIn the event this information is protected by the Federal Confidentiality of Alcohol and Drug Abuse Patient Records regulations: The Federal rules restrict any use of the information to criminally investigate or prosecute any alcohol or drug abuse patient.[facility] Reason for Visit (unrecogniz ed section and content) Reason Comments Appointment Reason Comments Schedule Surgery Reason Comments New Fracture Reason Comments Post Op 1 week 5 days post O RIF proximal ulna Left elbow FOR RECORDS PERTAINING TO PATIENTS WHO ARE OR HAVE BEEN ENROLLED IN A CHEMICAL DEPENDENCY/SUBSTANCEABUSE PROGRAM, SOME INFORMATION MAY BE OMITTED. This clinical summary was aggregated from multiple sources. Caution should be exercised in using it in the provision of clinical care. This summary normalizes information from multiple sources, and as a consequence, information in this document may materially change the coding, format and clinical context of patient data. In addition, data may be omitted in some cases. CLINICAL DECISIONS SHOULD BE BASED ON THE PRIMARY CLINICAL RECORDS. [facility] [employer] [facility]. provides no warranty or guarantee of the accuracy or completeness of information in this document.
[2024-11-02] MEDS: Fluorescein 1 MG STRIP 1 STRIP EACH EYE (20:59)
[2024-11-02 21:02] VITALS: BP 152/74; PULSE 55; RESP 18; TEMP 36.7; O2SAT 99
== END 2024-11-02 21:03 | disposition home or self-care (01) ==
LOC: ED 20:56
PROVIDERS: Emergency Provider Emergency Medicine; PCP Family Medicine; Visit Provider Emergency Medicine
DX: H18.823 Corneal disorder due to contact lens, bilateral (principal); E11.9 Type 2 diabetes mellitus without complications; Z79.84 Long term (current) use of oral hypoglycemic drugs
CPT/HCPCS: 99282